=== PATIENT | female | born 1985 | race Caucasian/White ===

== ENCOUNTER 2016-09-26 03:08 | Emergency (ER) | payer OTHER ==
[2016-09-26] MEDS ORDERED: ONDANSETRON ODT 4 MG TAB PO STA (03:25)
[2016-09-26] MEDS ORDERED: MECLIZINE 12.5 MG TAB PO STA (03:41)
--- NOTE | 2016-09-26 03:45 | ED ---
Dizziness HPI - General Chief Complaint: Nausea/Vomiting/Diarrhea Stated Complaint: Nausea, Vomiting, Dizziness Time Seen by Provider: 09/26/16 03:15 Source: family Mode of arrival: ambulatory Limitations: no limitations - History of Present Illness Initial Comments: This patient is a 30-year-old woman who presents with the onset of intense vertigo, coming by nausea and vomiting starting around 2 AM. Patient states that she woke from sleep with this. She immediately went to the bathroom and had some vomiting. She states that felt like she was losing her balance and that everything was spinning. The feeling is better when she remains still, worse when she changes position. She denies any other associated symptoms. MD Complaint: dizziness Onset/Timin -: hour(s) Timing: sudden onset Description: "room spinning", off-balance, difficulty walking History of Same: No History of Trauma: No Severity: severe Improves With: remaining still Worsens With: movement - Related Data Home Medications Medication Instructions Recorded Confirmed Ibuprofen [Motrin] 400 mg PO Q6HR PRN 10/19/15 09/26/16 busPIRone HCl [Buspar] 10 mg PO BID 09/26/16 09/26/16 Previous Rx's Medication Instructions Recorded Cephalexin [Keflex] 500 mg PO Q6HR #40 cap 10/19/15 Meclizine [Antivert] 25 mg PO TID #30 tab 09/26/16 Allergies Allergy/AdvReac Type Severity Reaction Status Date / Time Penicillins Allergy Rash/Hives Verified 10/19/15 09:39 strawberries Allergy Rash/Hives Uncoded 10/19/15 09:39 Review of Systems ROS Statement: Those systems with pertinent positive or pertinent negative responses have been documented in the HPI. ROS Other: All systems not noted in ROS Statement are negative. Constitutional: Denies: fever, chills, weakness Eyes: Denies: vision change ENT: Denies: ear pain, congestion Respiratory: Denies: cough, dyspnea Cardiovascular: Denies: chest pain, palpitations, syncope Gastrointestinal: Reports: nausea, vomiting. Denies: abdominal pain Genitourinary: Denies: dysuria, hematuria, abnormal menses Skin: Denies: rash Neurological: Reports: vertigo. Denies: headache, weakness, numbness, paresthesias, confusion Past Medical History Past Medical History: Hypertension History of Any Multi-Drug Resistant Organisms: None Reported Past Surgical History: Section Past Psychological History: No Psychological Hx Reported Smoking Status: Current every day smoker Past Alcohol Use History: Occasional Past Drug Use History: None Reported General Exam Limitations: no limitations General appearance: alert, in no apparent distress, obese Head exam: Present: atraumatic, normocephalic Eye exam: Present: normal appearance, PERRL, EOMI. Absent: scleral icterus, conjunctival injection, nystagmus ENT exam: Present: normal oropharynx Neck exam: Present: normal inspection, other (No carotid bruit) Respiratory exam: Present: normal lung sounds bilaterally. Absent: respiratory distress, wheezes, rales, rhonchi, stridor Cardiovascular Exam: Present: regular rate, normal rhythm, normal heart sounds. Absent: systolic murmur, diastolic murmur, rubs, gallop GI/Abdominal exam: Present: soft. Absent: distended, tenderness, guarding, rebound, mass Extremities exam: Present: normal inspection, normal capillary refill. Absent: pedal edema, calf tenderness Back exam: Present: normal inspection. Absent: CVA tenderness (R), CVA tenderness (L) Neurological exam: Present: alert Skin exam: Present: warm, dry, intact, normal color. Absent: rash Course Vital Signs 09/26/16 03:16 Temperature 97.9 F Pulse Rate 87 Respiratory 20 Rate Blood Pressure 143/78 O2 Sat by Pulse 98 Oximetry Medical Decision Making - Lab Data Result diagrams: 09/26/16 03:54 09/26/16 03:54 Lab Results 09/26/16 09/26/16 09/26/16 Range/Units 03:40 03:54 03:54 WBC 11.4 H (3.8-10.6) k/uL RBC 4.80 (3.80-5.40) m/uL Hgb 15.0 (11.4-16.0) gm/dL Hct 44.7 (34.0-46.0) % MCV 93.1 (80.0-100.0) fL MCH 31.2 (25.0-35.0) pg MCHC 33.5 (31.0-37.0) g/dL RDW 13.4 (11.5-15.5) % Sodium 142 (137-145) mmol/L Potassium 4.5 (3.5-5.1) mmol/L Chloride 109 H (98-107) mmol/L Carbon Dioxide 21 L (22-30) mmol/L Anion Gap 12 mmol/L BUN 13 (7-17) mg/dL Creatinine 0.60 (0.52-1.04) mg/dL Est GFR (MDRD) Af Amer >60 (>60 ml/min/1.73 sqM) Est GFR (MDRD) Non-Af >60 (>60 ml/min/1.73 sqM) Glucose 120 H (74-99) mg/dL Calcium 8.9 (8.4-10.2) mg/dL Urine HCG, Qual Not Detected (Not Detectd) Disposition Clinical Impression: Vertigo Disposition: HOME SELF-CARE Condition: Good Instructions: Vertigo (ED) Prescriptions: Meclizine [Antivert] 25 mg PO TID #30 tab Referrals: None,Stated [Primary Care Provider] - 1-2 days
[2016-09-26 04:25] LABS: CH 32.1; CHCM 34.6; HCT 44.7 % (34.0-46.0); HDW 2.63; MCH 31.2 pg (25.0-35.0); MCHC 33.5 g/dL (31.0-37.0); MCV 93.1 fL (80.0-100.0); Mean Platelet Volume 9.4; Neutrophils % (A) 71 %; RDW 13.4 % (11.5-15.5); WBC 11.4 k/uL (3.8-10.6); WBC (Perox) 10.82
[2016-09-26 04:26] LABS: Basophils # (A) 0.1 k/uL (0-0.2); Basophils % (A) 0 %; Eosinophils # (A) 0.3 k/uL (0-0.7); Eosinophils % (A) 3 %; Luc % (Auto) 1; Lymphocytes # (A) 2.4 k/uL (1.0-4.8); Lymphocytes % (A) 21 %; Monocytes # (A) 0.5 k/uL (0-1.0); Monocytes % (A) 4 %; Neutrophils # (A) 8.1 k/uL (1.3-7.7)
[2016-09-26 04:31] LABS: Anion Gap 12 mmol/L; Calcium 8.9 mg/dL (8.4-10.2); Carbon Dioxide 21 mmol/L (22-30); Chloride 109 mmol/L (98-107); Glucose 120 mg/dL (74-99); Non-African American GFR(MDRD) >60 (>60 ml/min/1.73 sqM); Sodium 142 mmol/L (137-145)
[2016-09-26 04:41] LABS: Blood Urea Nitrogen 13 mg/dL (7-17); Potassium 4.5 mmol/L (3.5-5.1)
[2016-09-26 04:46] LABS: Manual Review Performed
[2016-09-26 04:47] LABS: RBC Morphology Normal
[2016-09-26 04:56] VITALS: BP 136/81; PULSE 66; RESP 18; TEMP 97.2
== END 2016-09-26 05:02 | disposition home or self-care (01) ==
LOC: EC 03:08
DX: R42 Dizziness and giddiness (principal); R11.2 Nausea with vomiting, unspecified; R26.2 Difficulty in walking, not elsewhere classified; F17.200 Nicotine dependence, unspecified, uncomplicated; Z79.899 Other long term (current) drug therapy; Z88.0 Allergy status to penicillin; Z91.018 Allergy to other foods
CPT/HCPCS: 36415; 80048; 81025; 85025; 99284

== ENCOUNTER 2017-04-10 08:37 | Emergency (ER) | payer OTHER ==
[2017-04-10 08:49] VITALS: BP 163/81; PULSE 83; TEMP 98.1
--- NOTE | 2017-04-10 09:05 | ED ---
General Adult HPI - General Chief complaint: Upper Respiratory Infection Stated complaint: Facial Swelling, ENT Time Seen by Provider: 04/10/17 08:57 Source: patient, RN notes reviewed Mode of arrival: ambulatory Limitations: no limitations - History of Present Illness Initial comments: Patient is a pleasant 31-year-old female presenting to the emergency Department with sinus congestion and drainage. Symptoms have been present for a couple of days and worse today. Patient has noticed some swelling under left eye. No cough or dyspnea. No fevers. Patient states her is also some discomfort of the left ear. - Related Data Previous Rx's Medication Instructions Recorded Azithromycin [Zithromax Z-pack] 250 mg PO DIRECTED #6 tab 04/10/17 Allergies Allergy/AdvReac Type Severity Reaction Status Date / Time Penicillins Allergy Rash/Hives Verified 04/10/17 08:49 strawberry Allergy Rash/Hives Verified 04/10/17 09:00 Review of Systems ROS Statement: Those systems with pertinent positive or pertinent negative responses have been documented in the HPI. ROS Other: All systems not noted in ROS Statement are negative. Constitutional: Denies: fever, chills Eyes: Denies: eye pain ENT: Reports: ear pain, congestion Respiratory: Denies: dyspnea Cardiovascular: Denies: chest pain Endocrine: Denies: fatigue Gastrointestinal: Denies: abdominal pain Genitourinary: Denies: dysuria Musculoskeletal: Denies: back pain Skin: Denies: rash Neurological: Denies: weakness Past Medical History Past Medical History: Hypertension History of Any Multi-Drug Resistant Organisms: None Reported Past Surgical History: Section Past Psychological History: No Psychological Hx Reported Smoking Status: Current every day smoker Past Alcohol Use History: Rare Past Drug Use History: None Reported General Exam Limitations: no limitations General appearance: alert, in no apparent distress Head exam: Present: atraumatic Eye exam: Present: normal appearance, PERRL, other (Mild swelling in the left infraorbital region) ENT exam: Present: normal oropharynx, TM's normal bilaterally, other (Mild tenderness of the maxillary sinuses) Neck exam: Present: normal inspection Respiratory exam: Present: normal lung sounds bilaterally Cardiovascular Exam: Present: regular rate, normal rhythm GI/Abdominal exam: Present: soft. Absent: tenderness Neurological exam: Present: alert Psychiatric exam: Present: normal affect, normal mood Skin exam: Absent: rash Course Vital Signs 04/10/17 08:47 Temperature 98.1 F Pulse Rate 83 Respiratory 16 Rate Blood Pressure 163/81 O2 Sat by Pulse 98 Oximetry Disposition Clinical Impression: Sinusitis Disposition: HOME SELF-CARE Condition: Stable Instructions: Sinusitis (ED) Additional Instructions: Please follow-up with primary care physician in the next few days for recheck. [id number] saline nasal spray/motion nasal spray 4 times daily. Return for increased swelling, redness, visual change, eye pain, worsening symptoms or other concerns. Prescriptions: Azithromycin [Zithromax Z-pack] 250 mg PO DIRECTED #6 tab Referrals: None,Stated [Primary Care Provider] - 1-2 days Time of Disposition: 09:05
[2017-04-10 09:10] VITALS: RESP 19
== END 2017-04-10 09:12 | disposition home or self-care (01) ==
LOC: EC 08:37
DX: J32.0 Chronic maxillary sinusitis (principal); F17.200 Nicotine dependence, unspecified, uncomplicated; Z88.0 Allergy status to penicillin; Z91.018 Allergy to other foods
CPT/HCPCS: 99283

== ENCOUNTER 2017-06-22 00:50 | Emergency (ER) | payer OTHER ==
[2017-06-22 01:20] LABS: Glucose,Whole Blood 132 mg/dL (75-99)
[2017-06-22] MEDS ORDERED: SODIUM CHLORIDE 0.9% 1,000 ML IV STA (01:49)
[2017-06-22] MEDS ORDERED: THIAMINE 100 MG/ML 2 ML VIAL IVPB STA (01:49)
[2017-06-22] MEDS ORDERED: SODIUM CHLORIDE 0.9% 500 ML IV STA (01:49)
[2017-06-22 03:32] LABS: Basophils # (A) 0.1 k/uL (0-0.2); Basophils % (A) 0 %; Eosinophils # (A) 0.1 k/uL (0-0.7); Eosinophils % (A) 1 %; HCT 46.9 % (34.0-46.0); HGB 16.2 gm/dL (11.4-16.0); Lymphocytes # (A) 2.1 k/uL (1.0-4.8); Lymphocytes % (A) 14 %; MCH 30.9 pg (25.0-35.0); MCHC 34.6 g/dL (31.0-37.0); MCV 89.4 fL (80.0-100.0); Mean Platelet Volume 9.5; Monocytes # (A) 0.4 k/uL (0-1.0); Monocytes % (A) 2 %; Neutrophils # (A) 11.7 k/uL (1.3-7.7); Neutrophils % (A) 81 %; RBC 5.25 m/uL (3.80-5.40); RDW 13.1 % (11.5-15.5); WBC 14.4 k/uL (3.8-10.6)
--- NOTE | 2017-06-22 03:41 | ED ---
General Adult HPI - General Chief complaint: Alcohol Stated complaint: Syncope Time Seen by Provider: 06/22/17 01:29 Source: patient, RN notes reviewed, old records reviewed Mode of arrival: EMS Limitations: no limitations, altered mental status - History of Present Illness Initial comments: This is a 31-year-old female to the ER for evaluation. Patient unable to give accurate history. Secondary to clinical state intoxication. Patient was found per EMS on floor of the bathroom. Patient was difficult to arouse. Patient is known to have substance abuse and drank a significant amount of alcohol tonight - Related Data Home Medications Medication Instructions Recorded Confirmed No Known Home Medications [No 06/22/17 06/22/17 Known Home Medications] Allergies Allergy/AdvReac Type Severity Reaction Status Date / Time Penicillins Allergy Rash/Hives Verified 06/22/17 01:17 strawberry Allergy Rash/Hives Verified 06/22/17 01:17 Review of Systems ROS Statement: Those systems with pertinent positive or pertinent negative responses have been documented in the HPI. ROS Other: All systems not noted in ROS Statement are negative. Past Medical History Past Medical History: Hypertension History of Any Multi-Drug Resistant Organisms: None Reported Past Surgical History: Section Additional Past Surgical History / Comment(s): c-sect x1 Past Psychological History: No Psychological Hx Reported Smoking Status: Current every day smoker Past Alcohol Use History: Rare Past Drug Use History: None Reported General Exam Limitations: no limitations, altered mental status General appearance: alert, in no apparent distress, appears intoxicated Head exam: Present: atraumatic, normocephalic, normal inspection Eye exam: Present: normal appearance, PERRL, EOMI. Absent: scleral icterus, conjunctival injection, periorbital swelling ENT exam: Present: normal exam, mucous membranes moist Neck exam: Present: normal inspection. Absent: tenderness, meningismus, lymphadenopathy Respiratory exam: Present: normal lung sounds bilaterally. Absent: respiratory distress, wheezes, rales, rhonchi, stridor Cardiovascular Exam: Present: regular rate, normal rhythm, normal heart sounds. Absent: systolic murmur, diastolic murmur, rubs, gallop, clicks GI/Abdominal exam: Present: soft, normal bowel sounds. Absent: distended, tenderness, guarding, rebound, rigid Extremities exam: Present: normal inspection, full ROM, normal capillary refill. Absent: tenderness, pedal edema, joint swelling, calf tenderness Back exam: Present: normal inspection Neurological exam: Present: alert, oriented X3, CN II-XII intact Psychiatric exam: Present: normal affect, normal mood Skin exam: Present: warm, dry, intact, normal color. Absent: rash Course Vital Signs 06/22/17 06/22/17 06/22/17 01:11 03:53 05:10 Temperature 97.1 F L Pulse Rate 84 77 78 Respiratory 18 Rate Blood Pressure 137/91 122/73 125/72 O2 Sat by Pulse 98 97 98 Oximetry - Reevaluation(s) Reevaluation #1: 06/22/17 06:15 Patient much improved, awake and alert, arousable. EKG Findings - EKG Comments: EKG Findings:: EKG shows normal sinus rhythm rate of 87, OR 170, QRS 72, QTc 486 Medical Decision Making - Medical Decision Making 29 female the ER for evaluation. Patient found passed out in bathroom, patient at this time is awake alert arousable. Patient given adequate hydration, nausea vomiting is improved. Patient can be discharged home - Lab Data Result diagrams: 06/22/17 03:17 06/22/17 03:17 Lab Results 06/22/17 06/22/17 06/22/17 Range/Units 01:14 03:17 03:17 WBC (3.8-10.6) k/uL RBC (3.80-5.40) m/uL Hgb (11.4-16.0) gm/dL Hct (34.0-46.0) % MCV (80.0-100.0) fL MCH (25.0-35.0) pg MCHC (31.0-37.0) g/dL RDW (11.5-15.5) % Plt Count (150-450) k/uL Neutrophils % % Lymphocytes % % Monocytes % % Eosinophils % % Basophils % % Neutrophils # (1.3-7.7) k/uL Lymphocytes # (1.0-4.8) k/uL Monocytes # (0-1.0) k/uL Eosinophils # (0-0.7) k/uL Basophils # (0-0.2) k/uL PT (9.0-12.0) sec INR (<1.2) Sodium 146 H (137-145) mmol/L Potassium 3.9 (3.5-5.1) mmol/L Chloride 112 H (98-107) mmol/L Carbon Dioxide 21 L (22-30) mmol/L Anion Gap 13 mmol/L BUN 8 (7-17) mg/dL Creatinine 0.70 (0.52-1.04) mg/dL Est GFR (CKD-EPI)AfAm >90 (>60 ml/min/1.73 sqM) Est GFR (CKD-EPI)NonAf >90 (>60 ml/min/1.73 sqM) Glucose 110 H (74-99) mg/dL POC Glucose (mg/dL) 132 H (75-99) mg/dL POC Glu Stand Grinder ID Delicia Cruz Calcium 8.7 (8.4-10.2) mg/dL Phosphorus 3.4 (2.5-4.5) mg/dL Magnesium 2.1 (1.6-2.3) mg/dL Total Bilirubin 0.2 (0.2-1.3) mg/dL AST 21 (14-36) U/L ALT 24 (9-52) U/L Alkaline Phosphatase 56 (38-126) U/L Total Creatine Kinase 161 H (30-135) U/L CK-MB (CK-2) 0.9 (0.0-2.4) ng/mL CK-MB (CK-2) Rel Index 0.6 Troponin I <0.012 (0.000-0.034) ng/mL Total Protein 6.5 (6.3-8.2) g/dL Albumin 4.0 (3.5-5.0) g/dL Lipase 52 (23-300) U/L Urine Color Urine Appearance (Clear) Urine pH (5.0-8.0) Ur Specific [place] (1.001-1.035) Urine Protein (Negative) Urine Glucose (UA) (Negative) Urine Ketones (Negative) Urine Blood (Negative) Urine Nitrite (Negative) Urine Bilirubin (Negative) Urine Urobilinogen (<2.0) mg/dL Ur Leukocyte Esterase (Negative) Urine RBC (0-5) /hpf Urine WBC (0-5) /hpf Ur Squamous Epith Cells (0-4) /hpf Amorphous Sediment (None) /hpf Urine Bacteria (None) /hpf Urine Mucus (None) /hpf Urine HCG, Qual (Not Detectd) Salicylates <1.0 mg/dL Urine Opiates Screen (NotDetected) Ur Oxycodone Screen (NotDetected) Urine Methadone Screen (NotDetected) Ur Propoxyphene Screen (NotDetected) Acetaminophen <10.0 ug/mL Ur Barbiturates Screen (NotDetected) U Tricyclic Antidepress (NotDetected) Ur Phencyclidine Scrn (NotDetected) Ur Amphetamines Screen (NotDetected) U Methamphetamines Scrn (NotDetected) U Benzodiazepines Scrn (NotDetected) Urine Cocaine Screen (NotDetected) U Marijuana (THC) Screen (NotDetected) Serum Alcohol 175 mg/dL 06/22/17 06/22/17 06/22/17 Range/Units 03:17 03:17 03:39 WBC 14.4 H (3.8-10.6) k/uL RBC 5.25 (3.80-5.40) m/uL Hgb 16.2 H (11.4-16.0) gm/dL Hct 46.9 H (34.0-46.0) % MCV 89.4 (80.0-100.0) fL MCH 30.9 (25.0-35.0) pg MCHC 34.6 (31.0-37.0) g/dL RDW 13.1 (11.5-15.5) % Plt Count 94 L (150-450) k/uL Neutrophils % 81 % Lymphocytes % 14 % Monocytes % 2 % Eosinophils % 1 % Basophils % 0 % Neutrophils # 11.7 H (1.3-7.7) k/uL Lymphocytes # 2.1 (1.0-4.8) k/uL Monocytes # 0.4 (0-1.0) k/uL Eosinophils # 0.1 (0-0.7) k/uL Basophils # 0.1 (0-0.2) k/uL PT 9.6 (9.0-12.0) sec INR 1.0 (<1.2) Sodium (137-145) mmol/L Potassium (3.5-5.1) mmol/L Chloride (98-107) mmol/L Carbon Dioxide (22-30) mmol/L Anion Gap mmol/L BUN (7-17) mg/dL Creatinine (0.52-1.04) mg/dL Est GFR (CKD-EPI)AfAm (>60 ml/min/1.73 sqM) Est GFR (CKD-EPI)NonAf (>60 ml/min/1.73 sqM) Glucose (74-99) mg/dL POC Glucose (mg/dL) (75-99) mg/dL POC Glu Stand Grinder ID Calcium (8.4-10.2) mg/dL Phosphorus (2.5-4.5) mg/dL Magnesium (1.6-2.3) mg/dL Total Bilirubin (0.2-1.3) mg/dL AST (14-36) U/L ALT (9-52) U/L Alkaline Phosphatase (38-126) U/L Total Creatine Kinase (30-135) U/L CK-MB (CK-2) (0.0-2.4) ng/mL CK-MB (CK-2) Rel Index Troponin I (0.000-0.034) ng/mL Total Protein (6.3-8.2) g/dL Albumin (3.5-5.0) g/dL Lipase (23-300) U/L Urine Color Yellow Urine Appearance Turbid H (Clear) Urine pH 6.0 (5.0-8.0) Ur Specific [place] 1.007 (1.001-1.035) Urine Protein Negative (Negative) Urine Glucose (UA) Negative (Negative) Urine Ketones Negative (Negative) Urine Blood Negative (Negative) Urine Nitrite Negative (Negative) Urine Bilirubin Negative (Negative) Urine Urobilinogen <2.0 (<2.0) mg/dL Ur Leukocyte Esterase Moderate H (Negative) Urine RBC 7 H (0-5) /hpf Urine WBC 25 H (0-5) /hpf Ur Squamous Epith Cells 27 H (0-4) /hpf Amorphous Sediment Rare H (None) /hpf Urine Bacteria Many H (None) /hpf Urine Mucus Rare H (None) /hpf Urine HCG, Qual (Not Detectd) Salicylates mg/dL Urine Opiates Screen Not Detected (NotDetected) Ur Oxycodone Screen Not Detected (NotDetected) Urine Methadone Screen Not Detected (NotDetected) Ur Propoxyphene Screen Not Detected (NotDetected) Acetaminophen ug/mL Ur Barbiturates Screen Not Detected (NotDetected) U Tricyclic Antidepress Not Detected (NotDetected) Ur Phencyclidine Scrn Not Detected (NotDetected) Ur Amphetamines Screen Not Detected (NotDetected) U Methamphetamines Scrn Not Detected (NotDetected) U Benzodiazepines Scrn Not Detected (NotDetected) Urine Cocaine Screen Detected H (NotDetected) U Marijuana (THC) Screen Detected H (NotDetected) Serum Alcohol mg/dL 06/22/17 Range/Units 03:39 WBC (3.8-10.6) k/uL RBC (3.80-5.40) m/uL Hgb (11.4-16.0) gm/dL Hct (34.0-46.0) % MCV (80.0-100.0) fL MCH (25.0-35.0) pg MCHC (31.0-37.0) g/dL RDW (11.5-15.5) % Plt Count (150-450) k/uL Neutrophils % % Lymphocytes % % Monocytes % % Eosinophils % % Basophils % % Neutrophils # (1.3-7.7) k/uL Lymphocytes # (1.0-4.8) k/uL Monocytes # (0-1.0) k/uL Eosinophils # (0-0.7) k/uL Basophils # (0-0.2) k/uL PT (9.0-12.0) sec INR (<1.2) Sodium (137-145) mmol/L Potassium (3.5-5.1) mmol/L Chloride (98-107) mmol/L Carbon Dioxide (22-30) mmol/L Anion Gap mmol/L BUN (7-17) mg/dL Creatinine (0.52-1.04) mg/dL Est GFR (CKD-EPI)AfAm (>60 ml/min/1.73 sqM) Est GFR (CKD-EPI)NonAf (>60 ml/min/1.73 sqM) Glucose (74-99) mg/dL POC Glucose (mg/dL) (75-99) mg/dL POC Glu Stand Grinder ID Calcium (8.4-10.2) mg/dL Phosphorus (2.5-4.5) mg/dL Magnesium (1.6-2.3) mg/dL Total Bilirubin (0.2-1.3) mg/dL AST (14-36) U/L ALT (9-52) U/L Alkaline Phosphatase (38-126) U/L Total Creatine Kinase (30-135) U/L CK-MB (CK-2) (0.0-2.4) ng/mL CK-MB (CK-2) Rel Index Troponin I (0.000-0.034) ng/mL Total Protein (6.3-8.2) g/dL Albumin (3.5-5.0) g/dL Lipase (23-300) U/L Urine Color Urine Appearance (Clear) Urine pH (5.0-8.0) Ur Specific [place] (1.001-1.035) Urine Protein (Negative) Urine Glucose (UA) (Negative) Urine Ketones (Negative) Urine Blood (Negative) Urine Nitrite (Negative) Urine Bilirubin (Negative) Urine Urobilinogen (<2.0) mg/dL Ur Leukocyte Esterase (Negative) Urine RBC (0-5) /hpf Urine WBC (0-5) /hpf Ur Squamous Epith Cells (0-4) /hpf Amorphous Sediment (None) /hpf Urine Bacteria (None) /hpf Urine Mucus (None) /hpf Urine HCG, Qual Not Detected (Not Detectd) Salicylates mg/dL Urine Opiates Screen (NotDetected) Ur Oxycodone Screen (NotDetected) Urine Methadone Screen (NotDetected) Ur Propoxyphene Screen (NotDetected) Acetaminophen ug/mL Ur Barbiturates Screen (NotDetected) U Tricyclic Antidepress (NotDetected) Ur Phencyclidine Scrn (NotDetected) Ur Amphetamines Screen (NotDetected) U Methamphetamines Scrn (NotDetected) U Benzodiazepines Scrn (NotDetected) Urine Cocaine Screen (NotDetected) U Marijuana (THC) Screen (NotDetected) Serum Alcohol mg/dL Disposition Clinical Impression: Alcoholic intoxication, Altered mental state, Polysubstance abuse Disposition: HOME SELF-CARE Condition: Good Instructions: Alcohol Intoxication (ED), Polysubstance Abuse (ED) Referrals: None,Stated [Primary Care Provider] - 1-2 days
[2017-06-22 03:51] LABS: Platelet Count 94 k/uL (150-450)
[2017-06-22 04:03] LABS: Creatine Kinase 161 U/L (30-135)
[2017-06-22 04:04] LABS: ALT 24 U/L (9-52); AST 21 U/L (14-36); Acetaminophen <10.0 ug/mL; Alkaline Phosphatase 56 U/L (38-126); Anion Gap 13 mmol/L; Blood Urea Nitrogen 8 mg/dL (7-17); Calcium 8.7 mg/dL (8.4-10.2); Carbon Dioxide 21 mmol/L (22-30); Chloride 112 mmol/L (98-107); Glucose 110 mg/dL (74-99); Lipase 52 U/L (23-300); Magnesium 2.1 mg/dL (1.6-2.3); Phosphorus 3.4 mg/dL (2.5-4.5); Potassium 3.9 mmol/L (3.5-5.1); Prothrombin Time 9.6 sec (9.0-12.0); Salicylate <1.0 mg/dL; Sodium 146 mmol/L (137-145); Total Bilirubin 0.2 mg/dL (0.2-1.3); Total Protein 6.5 g/dL (6.3-8.2)
[2017-06-22 04:15] LABS: Creatine Kinase MB 0.9 ng/mL (0.0-2.4); Troponin I <0.012 ng/mL (0.000-0.034)
[2017-06-22 04:32] LABS: Amphetamine Screen,Urine Not Detected (NotDetected); Barbiturate Screen,Urine Not Detected (NotDetected); Benzodiazepines Screen,Urine Not Detected (NotDetected); Cocaine Screen,Urine Detected (NotDetected); Methadone Screen, Urine Not Detected (NotDetected); Opiate Screen,Urine Not Detected (NotDetected); Oxycodone Screen, Urine Not Detected (NotDetected); Phencyclidine Screen,Urine Not Detected (NotDetected); Tricyclic Antidepressant,Urine Not Detected (NotDetected); Urn Cannabinoid Scrn Detected (NotDetected)
[2017-06-22 04:32] LABS: Alcohol 175 mg/dL
[2017-06-22 04:48] LABS: Amorphous Sediment,Urine Rare /hpf; Appearance,Urine Turbid (Clear); Bacteria,Urine Many /hpf; Bilirubin,Urine Negative (Negative); Blood,Urine Negative (Negative); Color,Urine Yellow; Glucose,Urine (UA) Negative (Negative); Ketones,Urine Negative (Negative); Leukocyte Esterase,Urine Moderate (Negative); Mucus,Urine Rare /hpf; Nitrite,Urine Negative (Negative); Protein,Urine Negative (Negative); RBC,Urine 7 /hpf (0-5); Specific Gravity,Urine 1.007 (1.001-1.035); Squamous Epithelial Cell,Urine 27 /hpf (0-4); Urobilinogen,Urine <2.0 mg/dL (<2.0); WBC,Urine 25 /hpf (0-5)
[2017-06-22 06:50] VITALS: TEMP 98.2
[2017-06-22 08:39] VITALS: BP 135/86; PULSE 82; RESP 16
== END 2017-06-22 09:05 | disposition home or self-care (01) ==
LOC: EC 00:50
DX: F10.120 Alcohol abuse with intoxication, uncomplicated (principal); F19.10 Other psychoactive substance abuse, uncomplicated; R41.82 Altered mental status, unspecified; Y90.6 Blood alcohol level of 120-199 mg/100 ml; F17.200 Nicotine dependence, unspecified, uncomplicated; Z88.0 Allergy status to penicillin; Z91.018 Allergy to other foods
CPT/HCPCS: 99285; 96360; 96361; 36415; 93005; 80053; 82550; 82553; 83690; 83735; 84100; 84484; 85025; 85610; 81001; 81025; 80306; 83520 ×2; 80320; J3411

== ENCOUNTER 2017-09-07 11:40 | Emergency (ER) | payer OTHER ==
[2017-09-07 11:48] VITALS: BP 142/84; PULSE 80; RESP 18; TEMP 97.5
[2017-09-07] MEDS ORDERED: ACET/COD 300 MG/30 MG STARTER PACK 6 TAB BTL PO STA (12:06)
--- NOTE | 2017-09-07 12:11 | ED ---
General Adult HPI - General Chief complaint: Dental/Oral Stated complaint: Toothache Time Seen by Provider: 09/07/17 12:01 Source: patient, RN notes reviewed Mode of arrival: ambulatory Limitations: no limitations - History of Present Illness Initial comments: Patient 31-year-old female presents emergency room today with a chief complaint of increased dental pain. Patient does admit that her last today she's had increased pain to the right upper jaw. Patient states that she's had similar symptoms in the past with a bad tooth. She does admit that she's had a metal taste. Patient does admit she's tried ibuprofen [id number]. She denies any other complaints symptoms. Patient denies any recent fever, chills, shortness of breath, chest pain, back pain, abdominal pain, nausea or vomiting, numbness or tingling, headaches or visual changes, or any other complaints. - Related Data Previous Rx's Medication Instructions Recorded Clindamycin HCl [Cleocin] 300 mg PO Q6HR #40 cap 09/07/17 Allergies Allergy/AdvReac Type Severity Reaction Status Date / Time Penicillins Allergy Rash/Hives Verified 09/07/17 11:48 strawberry Allergy Rash/Hives Verified 09/07/17 11:48 Review of Systems ROS Statement: Those systems with pertinent positive or pertinent negative responses have been documented in the HPI. ROS Other: All systems not noted in ROS Statement are negative. Past Medical History Past Medical History: Hypertension History of Any Multi-Drug Resistant Organisms: None Reported Past Surgical History: Section Additional Past Surgical History / Comment(s): c-sect x1 Past Psychological History: No Psychological Hx Reported Smoking Status: Current every day smoker Past Alcohol Use History: Rare Past Drug Use History: None Reported General Exam - General Exam Comments Initial Comments: General: The patient is awake and alert, in no distress, and does not appear acutely ill. Eye: Pupils are equal, round and reactive to light, extra-ocular movements are intact. No nystagmus. There is normal conjunctiva bilaterally. No signs of icterus. Ears, nose, mouth and throat: There are moist mucous membranes and no oral lesions. Patient does have tenderness over tooth #2. No obvious abscess. Uvula midline. Patient swallows without any difficulty. Neck: The neck is supple, there is no tenderness or JVD. Musculoskeletal: Normal ROM, no tenderness. Strength 5/5. Sensation intact. Neurological: A&O x 3. CN II-XII intact, There are no obvious motor or sensory deficits. Coordination appears grossly intact. Speech is normal. Skin: Skin is warm and dry and no rashes or lesions are noted. Psychiatric: Cooperative, appropriate mood & affect, normal judgment. Limitations: no limitations Course Vital Signs 09/07/17 11:46 Temperature 97.5 F L Pulse Rate 80 Respiratory 18 Rate Blood Pressure 142/84 O2 Sat by Pulse 98 Oximetry Medical Decision Making - Medical Decision Making Patient be started on antibiotic of clinic myosin due to penicillin ALLERGY. Patient given starter pack a Tylenol with codeine. Advised continued anti- inflammatories. Advised follow dentist over the next 2-5 days. Advised return if symptoms increase or worsen. Disposition Clinical Impression: Dental abscess Disposition: HOME SELF-CARE Condition: Good Instructions: Dental Abscess (ED) Additional Instructions: Please use to back of the inside of the gum line to help with drainage. Please use pain medication and antibiotics as prescribed. Please follow-up dentist over the next 2-5 days. Please return to emergency room for any other concerns. Prescriptions: Clindamycin HCl [Cleocin] 300 mg PO Q6HR #40 cap Is patient prescribed a controlled substance at d/c from ED?: No Referrals: None,Stated [Primary Care Provider] - 1-2 days Time of Disposition: 12:09
== END 2017-09-07 12:34 | disposition home or self-care (01) ==
LOC: EC 11:40
DX: K04.7 Periapical abscess without sinus (principal); F17.200 Nicotine dependence, unspecified, uncomplicated; Z88.0 Allergy status to penicillin; Z91.018 Allergy to other foods
CPT/HCPCS: 99282

== ENCOUNTER 2018-12-04 00:53 | Emergency (ER) | payer OTHER ==
[2018-12-04 01:01] VITALS: TEMP 97.9
[2018-12-04] MEDS ORDERED: SODIUM CHLORIDE 0.9% 1,000 ML IV STA (01:12)
--- NOTE | 2018-12-04 01:31 | ED ---
Female Urogenital HPI - General Chief complaint: Urogenital Stated complaint: Female , back pain Time Seen by Provider: 12/04/18 01:12 Source: patient, RN notes reviewed Mode of arrival: ambulatory Limitations: no limitations - History of Present Illness Initial comments: This a 33-year-old female presents emergency Department chief complaint of heavy vaginal bleeding, discomfort and dysuria. Patient states that symptoms started last day or so. She did state that she ended her normal mental cycle 10 days ago states that she started spotting from the this as excessive bleeding from her usual heavy bleeding during her mental cycle. Patient states she is 4 months she did have her normal mental cycle last month. Patient's RESIDENTIAL ROOFER is Dr. Kline. Patient did have tubal ligation during her section. She has mild discomfort on her right flank but states is intermittent. She describes her dysuria as burning and stinging. She also states that she feels swollen. Patient reports no fevers or chills denies a diarrhea consti pation.. Last Menstrual Period: 11/23/18 - Related Data Previous Rx's Medication Instructions Recorded Clindamycin HCl [Cleocin] 300 mg PO Q6HR #40 cap 09/07/17 Sulfamethox-Tmp 800-160Mg [Bactrim 1 each PO Q12HR #14 tab 12/04/18 Ds] valACYclovir HCL [Valtrex] 1,000 mg PO Q12HR #20 tab 12/04/18 Allergies Allergy/AdvReac Type Severity Reaction Status Date / Time Penicillins Allergy Rash/Hives Verified 09/07/17 11:48 strawberry Allergy Rash/Hives Verified 09/07/17 11:48 Review of Systems ROS Statement: Those systems with pertinent positive or pertinent negative responses have been documented in the HPI. ROS Other: All systems not noted in ROS Statement are negative. Past Medical History Past Medical History: Hypertension History of Any Multi-Drug Resistant Organisms: None Reported Past Surgical History: Section Additional Past Surgical History / Comment(s): c-sect x1 Past Psychological History: No Psychological Hx Reported Smoking Status: Current every day smoker Past Alcohol Use History: Rare Past Drug Use History: None Reported General Exam Limitations: no limitations General appearance: alert, in no apparent distress Head exam: Present: atraumatic, normocephalic, normal inspection Eye exam: Present: normal appearance, PERRL, EOMI. Absent: scleral icterus, conjunctival injection, periorbital swelling ENT exam: Present: normal exam, normal oropharynx, mucous membranes moist Neck exam: Present: normal inspection, full ROM. Absent: tenderness, meningismus, lymphadenopathy Respiratory exam: Present: normal lung sounds bilaterally. Absent: respiratory distress, wheezes, rales, rhonchi, stridor Cardiovascular Exam: Present: regular rate, normal rhythm, normal heart sounds. Absent: systolic murmur, diastolic murmur, rubs, gallop, clicks GI/Abdominal exam: Present: soft, normal bowel sounds. Absent: distended, tenderness, guarding, rebound, rigid External exam: Present: erythema, lesions (Erythematous ulcerated lesions noted), other (exam with Rn gabino, unable to perform full exam secondary to patient's discomfort) Back exam: Absent: CVA tenderness (R), CVA tenderness (L) Neurological exam: Present: alert Skin exam: Present: warm, dry, intact, normal color. Absent: rash Course Vital Signs 12/04/18 00:57 Temperature 97.9 F Pulse Rate 95 Respiratory 16 Rate Blood Pressure 160/99 O2 Sat by Pulse 99 Oximetry Medical Decision Making - Medical Decision Making 33-year-old female presented for dysuria, heavy vaginal bleeding. Patient does have thrombocytopenia which is chronic and patient is normal at the scheduled see hematology. Patient's hemoglobin is stable. Patient has ulcerated lesions which is concerning for herpes. Patient will be treated appropriately. Patient will follow-up with her RESIDENTIAL ROOFER tomorrow and return for any worsening symptoms. - Lab Data Result diagrams: 12/04/18 01:30 12/04/18 01:30 Lab Results 12/04/18 12/04/18 12/04/18 Range/Units 01:12 01:12 01:30 WBC 8.8 (3.8-10.6) k/uL RBC 4.93 (3.80-5.40) m/uL Hgb 13.4 (11.4-16.0) gm/dL Hct 41.0 (34.0-46.0) % MCV 83.3 (80.0-100.0) fL MCH 27.2 (25.0-35.0) pg MCHC 32.7 (31.0-37.0) g/dL RDW 16.7 H (11.5-15.5) % Plt Count 50 L (150-450) k/uL Neutrophils % 66 % Lymphocytes % 23 % Monocytes % 4 % Eosinophils % 4 % Basophils % 1 % Neutrophils # 5.9 (1.3-7.7) k/uL Lymphocytes # 2.0 (1.0-4.8) k/uL Monocytes # 0.4 (0-1.0) k/uL Eosinophils # 0.3 (0-0.7) k/uL Basophils # 0.1 (0-0.2) k/uL Manual Slide Review Performed Large Platelets Present Anisocytosis Slight Sodium (137-145) mmol/L Potassium (3.5-5.1) mmol/L Chloride (98-107) mmol/L Carbon Dioxide (22-30) mmol/L Anion Gap mmol/L BUN (7-17) mg/dL Creatinine (0.52-1.04) mg/dL Est GFR (CKD-EPI)AfAm (>60 ml/min/1.73 sqM) Est GFR (CKD-EPI)NonAf (>60 ml/min/1.73 sqM) Glucose (74-99) mg/dL Calcium (8.4-10.2) mg/dL Total Bilirubin (0.2-1.3) mg/dL AST (14-36) U/L ALT (9-52) U/L Alkaline Phosphatase (38-126) U/L Total Protein (6.3-8.2) g/dL Albumin (3.5-5.0) g/dL Lipase (23-300) U/L Urine Color Yellow Urine Appearance Clear (Clear) Urine pH 6.0 (5.0-8.0) Ur Specific [place] 1.030 (1.001-1.035) Urine Protein 1+ H (Negative) Urine Glucose (UA) Negative (Negative) Urine Ketones Negative (Negative) Urine Blood Moderate H (Negative) Urine Nitrite Negative (Negative) Urine Bilirubin Negative (Negative) Urine Urobilinogen 2.0 (<2.0) mg/dL Ur Leukocyte Esterase Moderate H (Negative) Urine RBC >182 H (0-5) /hpf Urine WBC 60 H (0-5) /hpf Ur Squamous Epith Cells 8 H (0-4) /hpf Urine Bacteria Occasional H (None) /hpf Urine Mucus Rare H (None) /hpf Urine HCG, Qual Not Detected (Not Detectd) 12/04/18 Range/Units 01:30 WBC (3.8-10.6) k/uL RBC (3.80-5.40) m/uL Hgb (11.4-16.0) gm/dL Hct (34.0-46.0) % MCV (80.0-100.0) fL MCH (25.0-35.0) pg MCHC (31.0-37.0) g/dL RDW (11.5-15.5) % Plt Count (150-450) k/uL Neutrophils % % Lymphocytes % % Monocytes % % Eosinophils % % Basophils % % Neutrophils # (1.3-7.7) k/uL Lymphocytes # (1.0-4.8) k/uL Monocytes # (0-1.0) k/uL Eosinophils # (0-0.7) k/uL Basophils # (0-0.2) k/uL Manual Slide Review Large Platelets Anisocytosis Sodium 139 (137-145) mmol/L Potassium 4.1 (3.5-5.1) mmol/L Chloride 107 (98-107) mmol/L Carbon Dioxide 22 (22-30) mmol/L Anion Gap 10 mmol/L BUN 14 (7-17) mg/dL Creatinine 0.63 (0.52-1.04) mg/dL Est GFR (CKD-EPI)AfAm >90 (>60 ml/min/1.73 sqM) Est GFR (CKD-EPI)NonAf >90 (>60 ml/min/1.73 sqM) Glucose 92 (74-99) mg/dL Calcium 9.0 (8.4-10.2) mg/dL Total Bilirubin 0.2 (0.2-1.3) mg/dL AST 20 (14-36) U/L ALT 22 (9-52) U/L Alkaline Phosphatase 78 (38-126) U/L Total Protein 7.3 (6.3-8.2) g/dL Albumin 4.1 (3.5-5.0) g/dL Lipase 80 (23-300) U/L Urine Color Urine Appearance (Clear) Urine pH (5.0-8.0) Ur Specific [place] (1.001-1.035) Urine Protein (Negative) Urine Glucose (UA) (Negative) Urine Ketones (Negative) Urine Blood (Negative) Urine Nitrite (Negative) Urine Bilirubin (Negative) Urine Urobilinogen (<2.0) mg/dL Ur Leukocyte Esterase (Negative) Urine RBC (0-5) /hpf Urine WBC (0-5) /hpf Ur Squamous Epith Cells (0-4) /hpf Urine Bacteria (None) /hpf Urine Mucus (None) /hpf Urine HCG, Qual (Not Detectd) Disposition Clinical Impression: UTI (urinary tract infection), Vaginal pain, Vaginal sore Disposition: HOME SELF-CARE Condition: Stable Instructions (If sedation given, give patient instructions): Urinary Tract Infection in Women (ED) Additional Instructions: Please return to the Emergency Department if symptoms worsen or any other concerns. Prescriptions: Sulfamethox-Tmp 800-160Mg [Bactrim Ds] 1 each PO Q12HR #14 tab valACYclovir HCL [Valtrex] 1,000 mg PO Q12HR #20 tab Is patient prescribed a controlled substance at d/c from ED?: No Referrals: None,Stated [Primary Care Provider] - 1-2 days Charlene Kline MD [REFERRING] - 1-2 days Time of Disposition: 02:59
[2018-12-04 01:44] LABS: Anisocytosis Slight; Basophils # (A) 0.1 k/uL (0-0.2); Basophils % (A) 1 %; Eosinophils # (A) 0.3 k/uL (0-0.7); Eosinophils % (A) 4 %; HGB 13.4 gm/dL (11.4-16.0); Lymphocytes % (A) 23 %; MCH 27.2 pg (25.0-35.0); MCHC 32.7 g/dL (31.0-37.0); MCV 83.3 fL (80.0-100.0); Mean Platelet Volume 11.4; Monocytes # (A) 0.4 k/uL (0-1.0); Monocytes % (A) 4 %; Neutrophils # (A) 5.9 k/uL (1.3-7.7); Neutrophils % (A) 66 %; RBC 4.93 m/uL (3.80-5.40); RDW 16.7 % (11.5-15.5); WBC 8.8 k/uL (3.8-10.6)
[2018-12-04 01:54] LABS: Appearance,Urine Clear (Clear); Bacteria,Urine Occasional /hpf; Bilirubin,Urine Negative (Negative); Blood,Urine Moderate (Negative); Color,Urine Yellow; Glucose,Urine (UA) Negative (Negative); Ketones,Urine Negative (Negative); Leukocyte Esterase,Urine Moderate (Negative); Mucus,Urine Rare /hpf; Nitrite,Urine Negative (Negative); Protein,Urine 1+ (Negative); RBC,Urine >182 /hpf (0-5); Squamous Epithelial Cell,Urine 8 /hpf (0-4); WBC,Urine 60 /hpf (0-5)
[2018-12-04 01:57] LABS: ALT 22 U/L (9-52); AST 20 U/L (14-36); African American GFR (CKD) >90 (>60 ml/min/1.73 sqM); Albumin 4.1 g/dL (3.5-5.0); Alkaline Phosphatase 78 U/L (38-126); Anion Gap 10 mmol/L; Blood Urea Nitrogen 14 mg/dL (7-17); Carbon Dioxide 22 mmol/L (22-30); Chloride 107 mmol/L (98-107); Glucose 92 mg/dL (74-99); Non-African American GFR(CKD) >90 (>60 ml/min/1.73 sqM); Potassium 4.1 mmol/L (3.5-5.1); Sodium 139 mmol/L (137-145); Total Bilirubin 0.2 mg/dL (0.2-1.3); Total Protein 7.3 g/dL (6.3-8.2)
--- NOTE | 2018-12-04 02:24 | US ---
EXAM: US Pelvis, Transvaginal CLINICAL HISTORY: ITS.REASON US Reason: Pain TECHNIQUE: Real-time transvaginal pelvic ultrasound (complete) with image documentation. Transvaginal imaging was used for better evaluation of the endometrium and adnexa. COMPARISON: No relevant prior studies available. FINDINGS: Uterus/cervix: 10 cm. Normal endometrial stripe thickness 3 mm. No myometrial mass. Cysts in the cervix likely nabothian cysts. Right ovary: Not visualized. No adnexal mass. Left ovary: Not visualized. No adnexal mass. Free fluid: Trace free fluid in the cul-de-sac. IMPRESSION: No definite acute findings are seen. However the ovaries were not visualized due to difficult examination due to patient's pain.
[2018-12-04 02:25] LABS: Large Platelets Present; Platelet Count 50 k/uL (150-450)
[2018-12-04] MEDS ORDERED: valACYclovir 500 MG TAB PO STA (02:57)
[2018-12-04] MEDS ORDERED: cefTRIAXone IN SWFI 1,000 MG/10 ML SYRINGE IVP ONE (03:00)
[2018-12-04 03:26] VITALS: BP 148/88; PULSE 88; RESP 18
== END 2018-12-04 03:28 | disposition home or self-care (01) ==
LOC: EC 00:53
DX: N39.0 Urinary tract infection, site not specified (principal); D69.6 Thrombocytopenia, unspecified; N76.6 Ulceration of vulva; N93.9 Abnormal uterine and vaginal bleeding, unspecified; F17.200 Nicotine dependence, unspecified, uncomplicated; Z88.0 Allergy status to penicillin; Z91.018 Allergy to other foods; Z98.51 Tubal ligation status
CPT/HCPCS: 36415; 80053; 83690; 85025; 81001; 81025; 87086; 76830; 99284; 96374; 96361; J0696

== ENCOUNTER 2019-05-05 09:08 | Emergency (ER) | payer OTHER ==
[2019-05-05 09:20] VITALS: BP 131/81; PULSE 84; RESP 18; TEMP 98
--- NOTE | 2019-05-05 10:09 | ED ---
ENT HPI - General Chief complaint: ENT Stated complaint: ENT Time Seen by Provider: 05/05/19 09:30 Source: patient Mode of arrival: ambulatory Limitations: no limitations - History of Present Illness Initial comments: 33-year-old female presenting today for chief complaint of congestion, left ear pain and sore throat x 2 days. Patient states the past 2 days she has had congestion she states for the past day she has had left ear pain and sore throat. Admits to positive sick contacts with people within her home having similar symptoms. Patient denies fevers admits to chills. Denies cough chest pain or shortness of breath. Patient denies any nausea vomiting or diarrhea. Patient denies . Patient is considered an ear infection and presents emergency department today for evaluation upon arrival patient appears well no signs of acute distress she does not appear toxic in nature. - Related Data Previous Rx's Medication Instructions Recorded Clindamycin HCl [Cleocin] 300 mg PO Q6HR #40 cap 09/07/17 Sulfamethox-Tmp 800-160Mg [Bactrim 1 each PO Q12HR #14 tab 12/04/18 Ds] valACYclovir HCL [Valtrex] 1,000 mg PO Q12HR #20 tab 12/04/18 Azithromycin [Zithromax Z-pack] 0 mg PO DIRECTED #6 tab 05/05/19 Allergies Allergy/AdvReac Type Severity Reaction Status Date / Time Penicillins Allergy Rash/Hives Verified 05/05/19 09:16 strawberry Allergy Rash/Hives Verified 05/05/19 09:16 Review of Systems ROS Statement: Those systems with pertinent positive or pertinent negative responses have been documented in the HPI. ROS Other: All systems not noted in ROS Statement are negative. Past Medical History Past Medical History: Hypertension History of Any Multi-Drug Resistant Organisms: None Reported Past Surgical History: Section Additional Past Surgical History / Comment(s): c-sect x1 Past Psychological History: No Psychological Hx Reported Smoking Status: Current every day smoker Past Alcohol Use History: None Reported, Rare Past Drug Use History: None Reported General Exam - General Exam Comments Initial Comments: General: The patient is awake and alert, in no distress, and does not appear acutely ill. Eye: +3 mm pupils are equal, round and reactive to light, extra-ocular movements are intact. No nystagmus. There is normal conjunctiva bilaterally. No signs of icterus. No photophobia Ears, nose, mouth and throat: There are moist mucous membranes and no oral lesions. Oropharynx was midlly erythematous there is no tonsillar enlargement exudates or lesions. Uvula midline. Left TM erythematous without effusion EAC WNL. Tympanic membrane of the right ear is not erythematous or is no effusions bulging or retraction. No tenderness to palpation of the mastoid b/l. No anterior cervical lymphadenopathy. Rhinorrhea, clear and bilateral nares. No tripoding, no drooling. Neck: The neck is supple, there is no tenderness or JVD. No nuchal rigidity Cardiovascular: There is a regular rate and rhythm. No murmur, rub or gallop is appreciated. Respiratory: Lungs are clear to auscultation, respirations are non-labored, breath sounds are equal. No wheezes, stridor, rales, or rhonchi. No retractions or abdominal breathing. Gastrointestinal: Soft, non-distended, non-tender abdomen without masses or organomegaly noted. There is no rebound or guarding present. Bowel sounds are unremarkable. Musculoskeletal: Normal ROM, no tenderness. Strength 5/5. Sensation intact. Radial pulses equal bilaterally 2+. Neurological: A&O x 3. CN II-XII intact grossly, There are no obvious motor or sensory deficits. Coordination appears grossly intact. Speech appears normal, no muffling. Skin: Skin is warm and dry and no rashes or lesions are noted. No extremity edema Psychiatric: Cooperative Limitations: no limitations Course Vital Signs 05/05/19 09:17 Temperature 98.0 F Pulse Rate 84 Respiratory 18 Rate Blood Pressure 131/81 O2 Sat by Pulse 96 Oximetry Medical Decision Making - Medical Decision Making 33-year-old female presenting today for chief complaint of sore throat and left ear pain and evidence of otitis media ear examination is mildly erythematous oropharynx. Patient has amoxicillin ALLERGY. Patient does not appear toxic. Lungs clear denies any significant cough. Influenza testing negative at this time feel she is stable for discharge with azithromycin and primary care follow- up with primary to discuss at length patient was understanding and was discharged appearing well - Lab Data Lab Results 05/05/19 Range/Units 10:00 Influenza Type A RNA Not Detected (Not Detectd) Influenza Type B (PCR) Not Detected (Not Detectd) Disposition Clinical Impression: Otitis media, Congestion of nasal sinus, Pharyngitis Disposition: HOME SELF-CARE Condition: Good Instructions (If sedation given, give patient instructions): Ear Infection (ED) Additional Instructions: Please use medication as discussed. Please follow-up with family doctor in the next 2 days.. Please return to emergency room if the symptoms increase or worsen or for any other concerns. Prescriptions: Azithromycin [Zithromax Z-pack] 0 mg PO DIRECTED #6 tab Is patient prescribed a controlled substance at d/c from ED?: No Referrals: None,Stated [Primary Care Provider] - 1-2 days Time of Disposition: 10:33
== END 2019-05-05 10:50 | disposition home or self-care (01) ==
LOC: EC 09:08
DX: H66.92 Otitis media, unspecified, left ear (principal); J02.9 Acute pharyngitis, unspecified; R09.81 Nasal congestion; F17.200 Nicotine dependence, unspecified, uncomplicated; Z88.0 Allergy status to penicillin; Z91.018 Allergy to other foods
CPT/HCPCS: 87502; 99283

== ENCOUNTER 2019-05-11 12:52 | Emergency (ER) | payer OTHER ==
[2019-05-11 13:14] VITALS: BP 129/75; PULSE 88; RESP 18; TEMP 98
--- NOTE | 2019-05-11 14:22 | ED ---
URI HPI - General Chief Complaint: Upper Respiratory Infection Stated Complaint: recheck - sorethroat Time Seen by Provider: 05/11/19 13:17 Source: patient, RN notes reviewed, old records reviewed Mode of arrival: ambulatory Limitations: no limitations - History of Present Illness Initial Comments: 33 year old female with L ear pain, sore throat and congestion. She reports to completing azithromycin a few days ago for similiar complaints. She has been having symptoms for 2 weeks. She has been using OTCtreatments as well. Denies fever. - Related Data Previous Rx's Medication Instructions Recorded Clindamycin HCl [Cleocin] 300 mg PO Q6HR #40 cap 09/07/17 Sulfamethox-Tmp 800-160Mg [Bactrim 1 each PO Q12HR #14 tab 12/04/18 Ds] valACYclovir HCL [Valtrex] 1,000 mg PO Q12HR #20 tab 12/04/18 Azithromycin [Zithromax Z-pack] 0 mg PO DIRECTED #6 tab 05/05/19 Amoxic-Pot Clav 875-125Mg 1 tab PO Q12HR #20 tablet 05/11/19 [Augmentin 875-125] Fluticasone Propionate [Flonase 1 spray EA NOSTRIL QID #1 bottle 05/11/19 Allergy Relief] predniSONE [Deltasone] 20 mg PO BID #10 tab 05/11/19 Allergies Allergy/AdvReac Type Severity Reaction Status Date / Time Penicillins Allergy Rash/Hives Verified 05/05/19 09:16 strawberry Allergy Rash/Hives Verified 05/05/19 09:16 Review of Systems ROS Statement: Those systems with pertinent positive or pertinent negative responses have been documented in the HPI. ROS Other: All systems not noted in ROS Statement are negative. Past Medical History Past Medical History: Hypertension History of Any Multi-Drug Resistant Organisms: None Reported Past Surgical History: Section Additional Past Surgical History / Comment(s): c-sect x1 Past Psychological History: No Psychological Hx Reported Smoking Status: Current every day smoker Past Alcohol Use History: None Reported, Rare Past Drug Use History: None Reported General Exam - General Exam Comments Initial Comments: 33 year old female, no distress. Limitations: no limitations General appearance: alert, in no apparent distress Head exam: Present: atraumatic, normocephalic, normal inspection Eye exam: Present: normal appearance, PERRL, EOMI. Absent: scleral icterus, conjunctival injection, periorbital swelling ENT exam: Present: normal exam, mucous membranes moist, other (erythematous TM on R with effusion. Patient has sinus tenderness over ethomoid sinus. ). Absent: normal oropharynx (erythematous pharyngitis) Neck exam: Present: normal inspection. Absent: tenderness, meningismus, lymphadenopathy Respiratory exam: Present: normal lung sounds bilaterally. Absent: respiratory distress, wheezes, rales, rhonchi, stridor Cardiovascular Exam: Present: regular rate, normal rhythm, normal heart sounds. Absent: systolic murmur, diastolic murmur, rubs, gallop, clicks GI/Abdominal exam: Present: soft, normal bowel sounds. Absent: distended, tenderness, guarding, rebound, rigid Extremities exam: Present: normal inspection, full ROM, normal capillary refill. Absent: tenderness, pedal edema, joint swelling, calf tenderness Back exam: Present: normal inspection Neurological exam: Present: alert, oriented X3, CN II-XII intact Psychiatric exam: Present: normal affect, normal mood Course Vital Signs 05/11/19 05/11/19 05/11/19 13:11 13:22 14:30 Temperature 98.0 F 98.0 F Pulse Rate 88 88 Respiratory 18 18 18 Rate Blood Pressure 129/75 129/75 O2 Sat by Pulse 100 100 Oximetry Medical Decision Making - Medical Decision Making 33 year old with sinusitis, pharyngitis, and ear pain. Patient vitals are stable. Lungs are clear, and appears in no distress. SHe has sinus tenderness, and evinece of effusion in TM. Will DC patient with steriods, augmentin and advised PCP follow up. Given note for work. - Lab Data Lab Results 05/11/19 Range/Units 14:04 Group A Strep Rapid Negative (Negative) Disposition Clinical Impression: Pharyngitis, Otitis Disposition: HOME SELF-CARE Condition: Good Instructions (If sedation given, give patient instructions): Upper Respiratory Infection (ED) Additional Instructions: Please use medication as discussed. Please follow up with family doctor if symptoms have not improved over the next two days. Please return to the emergency room if your symptoms increase or worsen or for any other concerns. Prescriptions: Amoxic-Pot Clav 875-125Mg [Augmentin 875-125] 1 tab PO Q12HR #20 tablet predniSONE [Deltasone] 20 mg PO BID #10 tab Fluticasone Propionate [Flonase Allergy Relief] 1 spray EA NOSTRIL QID #1 bottle Is patient prescribed a controlled substance at d/c from ED?: No Referrals: None,Stated [Primary Care Provider] - 1-2 days Time of Disposition: 14:19
== END 2019-05-11 14:30 | disposition home or self-care (01) ==
LOC: EC 12:52
DX: J02.9 Acute pharyngitis, unspecified (principal); H66.92 Otitis media, unspecified, left ear; I10 Essential (primary) hypertension; F17.200 Nicotine dependence, unspecified, uncomplicated; Z91.018 Allergy to other foods; Z88.0 Allergy status to penicillin
CPT/HCPCS: 87081; 87430; 99284

== ENCOUNTER 2019-06-11 16:41 | Emergency (ER) | payer OTHER ==
[2019-06-11 16:44] VITALS: BP 150/99; RESP 18; TEMP 99.2
[2019-06-11 16:47] VITALS: PULSE 91
--- NOTE | 2019-06-11 17:24 | ED ---
General Adult HPI - General Chief complaint: ENT Stated complaint: ear infection & neck pain Time Seen by Provider: 06/11/19 16:49 Source: patient, RN notes reviewed Mode of arrival: ambulatory Limitations: no limitations - History of Present Illness Initial comments: 33-year-old female presents for left ear pain 4 days. Patient states she has had problems with her ear for the past 2 months. Patient has been on azithromycin and Augmentin in the past 2 months. States that the last dose of Augmentin clear to per ear pain however 4 days ago it started again. States it is a sharp pain in the left ear that radiates down to the left jaw. Denies any dental pain. Denies any swelling. Denies any posterior neck pain. Denies headaches. Denies fevers.Patient has no other complaints at this time including shortness of breath, chest pain, abdominal pain, nausea or vomiting, headache, or visual changes. - Related Data Previous Rx's Medication Instructions Recorded Clindamycin HCl [Cleocin] 300 mg PO Q6HR #40 cap 09/07/17 Sulfamethox-Tmp 800-160Mg [Bactrim 1 each PO Q12HR #14 tab 12/04/18 Ds] valACYclovir HCL [Valtrex] 1,000 mg PO Q12HR #20 tab 12/04/18 Azithromycin [Zithromax Z-pack] 0 mg PO DIRECTED #6 tab 05/05/19 Amoxic-Pot Clav 875-125Mg 1 tab PO Q12HR #20 tablet 05/11/19 [Augmentin 875-125] Fluticasone Propionate [Flonase 1 spray EA NOSTRIL QID #1 bottle 05/11/19 Allergy Relief] predniSONE [Deltasone] 20 mg PO BID #10 tab 05/11/19 Amoxicillin/Potassium Clav 1 tab PO Q12HR #20 tab 06/11/19 [Augmentin 875-125 Tablet] Allergies Allergy/AdvReac Type Severity Reaction Status Date / Time Penicillins Allergy Rash/Hives Verified 06/11/19 16:44 strawberry Allergy Rash/Hives Verified 06/11/19 16:44 Review of Systems ROS Statement: Those systems with pertinent positive or pertinent negative responses have been documented in the HPI. ROS Other: All systems not noted in ROS Statement are negative. Past Medical History Past Medical History: Hypertension History of Any Multi-Drug Resistant Organisms: None Reported Past Surgical History: Section Additional Past Surgical History / Comment(s): c-sect x1 Past Psychological History: No Psychological Hx Reported Smoking Status: Current every day smoker Past Alcohol Use History: None Reported, Rare Past Drug Use History: None Reported General Exam Limitations: no limitations General appearance: alert, in no apparent distress Head exam: Present: atraumatic, normocephalic, normal inspection Eye exam: Present: normal appearance, PERRL, EOMI. Absent: scleral icterus, conjunctival injection, periorbital swelling ENT exam: Present: normal oropharynx (No abscesses of the teeth. No tenderness to palpation of the gum line. No tenderness to percussion of the teeth. No pain when biting down on tongue blade.), normal external ear exam. Absent: TM's normal bilaterally (L Tympanic membrane is erythematous, appears inflamed. No tympanic membrane perforation. Right tympanic membrane is within normal limits) Neck exam: Present: normal inspection, full ROM. Absent: tenderness, meningismus, lymphadenopathy Respiratory exam: Present: normal lung sounds bilaterally. Absent: respiratory distress, wheezes, rales, rhonchi, stridor Cardiovascular Exam: Present: regular rate, normal rhythm, normal heart sounds. Absent: systolic murmur, diastolic murmur, rubs, gallop, clicks GI/Abdominal exam: Present: soft, normal bowel sounds. Absent: distended, tenderness, guarding, rebound, rigid Course Vital Signs 06/11/19 16:42 Temperature 99.2 F Pulse Rate 91 Respiratory 18 Rate Blood Pressure 150/99 O2 Sat by Pulse 99 Oximetry Medical Decision Making - Medical Decision Making Patient does have an erythematous left tympanic membrane. There is no neck pain or stiffness. Pain radiates to the left jaw but patient does not have any signs of dental infection. I will restart patient on Augmentin and nasal spray however discuss that she needs to see an ENT as she has not followed up with anyone and this is her third ER visit for similar complaints. Discussed to return here if she has worsening symptoms prior to being able to see ENT.I discussed this case with attending Dr. Tian who agrees with this assessment and treatment plan. Disposition Clinical Impression: Otitis media, Ear pain, left Disposition: HOME SELF-CARE Condition: Good Instructions (If sedation given, give patient instructions): Earache (ED) Additional Instructions: Please continue to use nasal spray. Take Augmentin as directed. Follow up with ENT in 1-2 days. If you have any worsening symptoms return here to the emergency department. Prescriptions: Amoxicillin/Potassium Clav [Augmentin 875-125 Tablet] 1 tab PO Q12HR #20 tab Is patient prescribed a controlled substance at d/c from ED?: No Referrals: Srikanth Gray MD [REFERRING] - 1-2 days Garry Zambrano MD [STAFF PHYSICIAN] - 1-2 days Time of Disposition: 17:25
== END 2019-06-11 17:30 | disposition home or self-care (01) ==
LOC: EC 16:41
DX: H66.92 Otitis media, unspecified, left ear (principal); F17.200 Nicotine dependence, unspecified, uncomplicated; Z88.0 Allergy status to penicillin; Z91.018 Allergy to other foods
CPT/HCPCS: 99283

== ENCOUNTER 2019-08-28 23:50 | Emergency (ER) | payer OTHER ==
[2019-08-29] VITALS: BP 165/90; PULSE 85; RESP 18; TEMP 98.3
[2019-08-29] MEDS ORDERED: CLINDAMYCIN 150 MG CAP PO STA (00:42)
[2019-08-29] MEDS ORDERED: Acetaminophen-Codeine 300-30mg TAB PO STA (00:42)
[2019-08-29] MEDS ORDERED: ACET/COD 300 MG/30 MG STARTER PACK 6 TAB BTL PO STA (00:42)
--- NOTE | 2019-08-29 00:43 | ED ---
ENT HPI - General Chief complaint: Dental/Oral Stated complaint: Jaw and facial pain Time Seen by Provider: 08/29/19 00:15 Source: patient, RN notes reviewed, old records reviewed Mode of arrival: ambulatory Limitations: no limitations - History of Present Illness MD complaint: tooth pain, ear pain -: days(s) Location: L ear, tooth # (r upper rear) Severity: moderate Severity scale (1-10): 4 Quality: aching Consistency: constant Improves with: none Worsens with: none Context- Dental: history of dental caries, poor dental care Associated Symptoms: toothache, pain with swallowing - Related Data Previous Rx's Medication Instructions Recorded Clindamycin HCl [Cleocin] 300 mg PO Q6HR #40 cap 09/07/17 Sulfamethox-Tmp 800-160Mg [Bactrim 1 each PO Q12HR #14 tab 12/04/18 Ds] valACYclovir HCL [Valtrex] 1,000 mg PO Q12HR #20 tab 12/04/18 Azithromycin [Zithromax Z-pack] 0 mg PO DIRECTED #6 tab 05/05/19 Amoxic-Pot Clav 875-125Mg 1 tab PO Q12HR #20 tablet 05/11/19 [Augmentin 875-125] Fluticasone Propionate [Flonase 1 spray EA NOSTRIL QID #1 bottle 05/11/19 Allergy Relief] predniSONE [Deltasone] 20 mg PO BID #10 tab 05/11/19 Amoxicillin/Potassium Clav 1 tab PO Q12HR #20 tab 06/11/19 [Augmentin 875-125 Tablet] Clindamycin HCl [Cleocin] 300 mg PO Q6HR #40 cap 08/29/19 Allergies Allergy/AdvReac Type Severity Reaction Status Date / Time Penicillins Allergy Rash/Hives Verified 08/29/19 00:00 strawberry Allergy Rash/Hives Verified 08/29/19 00:00 Review of Systems ROS Statement: Those systems with pertinent positive or pertinent negative responses have been documented in the HPI. ROS Other: All systems not noted in ROS Statement are negative. Past Medical History Past Medical History: Hypertension History of Any Multi-Drug Resistant Organisms: None Reported Past Surgical History: Section Additional Past Surgical History / Comment(s): c-sect x2 Past Psychological History: No Psychological Hx Reported Smoking Status: Current every day smoker Past Alcohol Use History: None Reported Past Drug Use History: Marijuana General Exam Limitations: no limitations General appearance: alert, in no apparent distress Head exam: Present: atraumatic, normocephalic, normal inspection Eye exam: Present: normal appearance, PERRL, EOMI. Absent: scleral icterus, conjunctival injection, periorbital swelling ENT exam: Present: normal exam, mucous membranes moist Neck exam: Present: normal inspection. Absent: tenderness, meningismus, lymphadenopathy Respiratory exam: Present: normal lung sounds bilaterally. Absent: respiratory distress, wheezes, rales, rhonchi, stridor Cardiovascular Exam: Present: regular rate, normal rhythm, normal heart sounds. Absent: systolic murmur, diastolic murmur, rubs, gallop, clicks GI/Abdominal exam: Present: soft, normal bowel sounds. Absent: distended, tenderness, guarding, rebound, rigid Extremities exam: Present: normal inspection, full ROM, normal capillary refill. Absent: tenderness, pedal edema, joint swelling, calf tenderness Back exam: Present: normal inspection Neurological exam: Present: alert, oriented X3, CN II-XII intact Psychiatric exam: Present: normal affect, normal mood Skin exam: Present: warm, dry, intact, normal color. Absent: rash Course Vital Signs 08/28/19 23:58 Temperature 98.3 F Pulse Rate 85 Respiratory 18 Rate Blood Pressure 165/90 O2 Sat by Pulse 100 Oximetry Disposition Clinical Impression: Dental abscess, Dental caries Disposition: HOME SELF-CARE Condition: Good Instructions (If sedation given, give patient instructions): Dental Abscess (ED), Toothache (ED) Prescriptions: Clindamycin HCl [Cleocin] 300 mg PO Q6HR #40 cap Is patient prescribed a controlled substance at d/c from ED?: No Referrals: Angela Ferris MD [Primary Care Provider] - 1-2 days
== END 2019-08-29 00:51 | disposition home or self-care (01) ==
LOC: EC 23:50
DX: K04.7 Periapical abscess without sinus (principal); K02.9 Dental caries, unspecified; F17.200 Nicotine dependence, unspecified, uncomplicated; Z88.0 Allergy status to penicillin; Z91.018 Allergy to other foods
CPT/HCPCS: 99283

== ENCOUNTER 2022-09-26 14:51 | Emergency (ER) | payer OTHER ==
[2022-09-26 14:56] VITALS: PULSE 98
[2022-09-26] MEDS ORDERED: Acetaminophen-Codeine 300-30mg TAB PO STA (16:24)
[2022-09-26] MEDS ORDERED: ACET/COD 300 MG/30 MG STARTER PACK 6 TAB BTL PO STA (16:24)
--- NOTE | 2022-09-26 16:31 | ED ---
General Adult HPI - General Chief complaint: Dental/Oral Stated complaint: dental pain Time Seen by Provider: 09/26/22 16:02 Source: patient, RN notes reviewed Mode of arrival: ambulatory Limitations: no limitations - History of Present Illness Initial comments: 36-year-old female presents emergency department chief complaint of dental pain. Patient states that she has been having pain for quite some time but yesterday she noticed the pain was worse and she had to be seen at urgent care. She reports pain on her right sided mouth upper and lower dentition. She was prescribed a medrol dose pack and clindamycin which she states she has been taking. She also reports taking motrin 800mg for pain which is not helping. Last dose of motrin was at 1230. She states she has an appointment for extraction of her wisdom teeth on 10/18/22. Patient is otherwise healthy and takes no daily medications. - Related Data Previous Rx's Medication Instructions Recorded clindamycin HCL [Cleocin] 300 mg PO Q6HR #40 cap 09/07/17 Sulfamethox-Tmp 800-160Mg [Bactrim 1 each PO Q12HR #14 tab 12/04/18 Ds] valACYclovir HCL [Valtrex] 1,000 mg PO Q12HR #20 tab 12/04/18 Azithromycin [Zithromax Z-pack (6 0 mg PO DIRECTED #6 tab 05/05/19 tabs)] Amoxic-Pot Clav 875-125Mg 1 tab PO Q12HR #20 tablet 05/11/19 [Augmentin 875-125] Fluticasone Propionate [Flonase 1 spray EA NOSTRIL QID #1 bottle 05/11/19 Allergy Relief] predniSONE [Deltasone] 20 mg PO BID #10 tab 05/11/19 Amoxicillin/Potassium Clav 1 tab PO Q12HR #20 tab 06/11/19 [Augmentin 875-125 Tablet] clindamycin HCL [Cleocin] 300 mg PO Q6HR #40 cap 08/29/19 Allergies Allergy/AdvReac Type Severity Reaction Status Date / Time Penicillins Allergy Rash/Hives Verified 09/26/22 14:56 strawberry Allergy Rash/Hives Verified 09/26/22 14:56 Review of Systems ROS Statement: Those systems with pertinent positive or pertinent negative responses have been documented in the HPI. ROS Other: All systems not noted in ROS Statement are negative. Past Medical History Past Medical History: Hypertension History of Any Multi-Drug Resistant Organisms: None Reported Past Surgical History: Section Additional Past Surgical History / Comment(s): c-sect x2 Past Psychological History: No Psychological Hx Reported Smoking Status: Current every day smoker Past Alcohol Use History: None Reported Past Drug Use History: Marijuana General Exam Limitations: no limitations General appearance: alert, in no apparent distress Head exam: Present: atraumatic, normocephalic, normal inspection Eye exam: Present: normal appearance, PERRL, EOMI. Absent: scleral icterus, conjunctival injection, periorbital swelling ENT exam: Present: mucous membranes moist, other (dental caries and impaction of lower right sided wisdom tooth without abscess) Neck exam: Present: normal inspection, full ROM. Absent: tenderness, meningismus, lymphadenopathy Respiratory exam: Present: normal lung sounds bilaterally. Absent: respiratory distress, wheezes, rales, rhonchi, stridor Cardiovascular Exam: Present: regular rate, normal rhythm, normal heart sounds. Absent: systolic murmur, diastolic murmur, rubs, gallop, clicks Extremities exam: Present: normal inspection, full ROM, normal capillary refill. Absent: tenderness, pedal edema, joint swelling, calf tenderness Back exam: Present: normal inspection Neurological exam: Present: alert, oriented X3 Psychiatric exam: Present: normal affect, normal mood Skin exam: Present: warm, dry, intact, normal color. Absent: rash Course Vital Signs 09/26/22 09/26/22 14:52 16:52 Temperature 98.1 F 98 F Pulse Rate 98 98 Respiratory 20 18 Rate Blood Pressure 164/97 147/89 O2 Sat by Pulse 99 99 Oximetry Medical Decision Making - Medical Decision Making Was pt. sent in by a medical professional or institution (, PA, ACCOUNTS RECEIVABLE BOOKKEEPER, urgent care, hospital, or [place] [facility] facility...) When possible be specific @ -No Did you speak to anyone other than the patient for history (EMS, parent, family, police, friend...)? What history was obtained from this source @ -No Did you review nursing and triage notes (agree or disagree)? Why? @ -I reviewed and agree with nursing and triage notes Were old charts reviewed (outside hosp., previous admission, EMS record, old EKG, old radiological studies, urgent care reports/EKG's, [place] [facility] facility records)? Report findings @ -None Differential Diagnosis (chest pain, altered mental status, abdominal pain women, abdominal pain men, vaginal bleeding, weakness, fever, dyspnea, syncope, headache, dizziness, GI bleed, back pain, seizure, CVA, palpatations, mental health, musculoskeletal)? @ -Dental caries, dental infection, dental abscess, peritonisilar abscess, tonsillitis, this list is not all inclusive EKG interpreted by me (3pts min.). @ -None X-rays interpreted by me (1pt min.). @ -None done CT interpreted by me (1pt min.). @ -None done U/S interpreted by me (1pt. min.). @ -None done What testing was considered but not performed or refused? (CT, X-rays, U/S, labs)? Why? @ -None What meds were considered but not given or refused? Why? @ -None Did you discuss the management of the patient with other professionals (professionals i.e. , PA, ACCOUNTS RECEIVABLE BOOKKEEPER, lab, RT, psych nurse, manager social media, risk control consultant, teacher, environmental conservation officer, manager rn case)? Give summary @ -No Was smoking cessation discussed for >3mins.? @ -No Was critical care preformed (if so, how long)? @ -No Were there social determinants of health that impacted care today? How? (Homelessness, low income, unemployed, alcoholism, drug addiction, transportation, low edu. Level, literacy, decrease access to med. care, long term, rehab)? @ -No Was there de-escalation of care discussed even if they declined (Discuss DNR or withdrawal of care, Hospice)? DNR status @ -No What co-morbidities impacted this encounter? (DM, HTN, Smoking, COPD, CAD, Cancer, CVA, ARF, Chemo, Hep., AIDS, mental health diagnosis, sleep apnea, morbid obesity)? @ -None Was patient admitted / discharged? Hospital course, mention meds given and route, prescriptions, significant lab abnormalities, going to OR and other pertinent info. @ -Discharged. Patient presented to emergency department chief complaint of dental pain. Patient reports a worsening of dental pain 1 day and was seen in the clinic where she was prescribed clindamycin and a medrol dose pack which she has been taking. She also reports taking Motrin for the pain. On examination, patient is well-appearing, handling secretions, oropharynx nonerythematous, no visible dental abscess. Patient was given Tylenol 3 and a starter pack to go home with and advised follow-up with her dentist. Recommended discontinuing the Medrol Dosepak and continuing clindamycin, Motrin 800mg every 8 hours as needed for pain along with the Tylenol 3. Patient discharged in stable condition. Case discussed with my attending, Dr. Mrogan Undiagnosed new problem with uncertain prognosis? @ -No Drug Therapy requiring intensive monitoring for toxicity (Heparin, Nitro, Insulin, Cardizem)? @ -No Were any procedures done? @ -No Diagnosis/symptom? @ -impacted molar Acute, or Chronic, or Acute on Chronic? @ -acute Uncomplicated (without systemic symptoms) or Complicated (systemic symptoms)? @ -uncomplicated Side effects of treatment? @ -No Exacerbation, Progression, or Severe Exacerbation? @ -No Poses a threat to life or bodily function? How? (Chest pain, USA, MD, pneumonia, PE, COPD, DKA, ARF, appy, cholecystitis, CVA, Diverticulitis, Homicidal, Suicidal, threat to staff... and all critical care pts) @ -No Disposition Clinical Impression: Impacted molar Disposition: HOME SELF-CARE Condition: Stable Instructions (If sedation given, give patient instructions): Toothache (ED) Additional Instructions: Please follow up with your dentist. Continue Motrin 800mg every 8 hours. Take clindamycin to completion. Return to the emergency department for new or worsening symptoms. Is patient prescribed a controlled substance at d/c from ED?: No Referrals: Angela Ferris MD [Primary Care Provider] - 1-2 days Time of Disposition: 16:33
[2022-09-26 16:53] VITALS: BP 147/89; RESP 18; TEMP 98
== END 2022-09-26 17:03 | disposition home or self-care (01) ==
LOC: EC 14:51
DX: K01.1 Impacted teeth (principal); I10 Essential (primary) hypertension; F17.200 Nicotine dependence, unspecified, uncomplicated; F12.90 Cannabis use, unspecified, uncomplicated; Z91.018 Allergy to other foods; Z88.0 Allergy status to penicillin
CPT/HCPCS: 99282

== ENCOUNTER 2022-10-18 12:18 | Emergency (ER) | payer OTHER ==
--- NOTE | 2022-10-18 12:44 | ED ---
General Adult HPI - General Chief complaint: Recheck/Abnormal Lab/Rx Stated complaint: hypertension Time Seen by Provider: 10/18/22 12:25 Source: patient Mode of arrival: ambulatory Limitations: no limitations - History of Present Illness Initial comments: 36-year-old female presents to the emergency room reporting hypertension. Went to her dentist office today to have teeth extracted. They took her blood pressure and it was high. Reports that she did have history of high blood pressure, especially while . Reports that she lost weight and her blood pressure seemed to improve on its own and therefore she does not take anything at this time. She admits that she has been having infrequent headaches. Has had some face pressure. No shortness of breath. No chest pain. No concern for at this time. No other alleviating, precipitating or modifying factors - Related Data Previous Rx's Medication Instructions Recorded clindamycin HCL [Cleocin] 300 mg PO Q6HR #40 cap 09/07/17 Sulfamethox-Tmp 800-160Mg [Bactrim 1 each PO Q12HR #14 tab 12/04/18 Ds] valACYclovir HCL [Valtrex] 1,000 mg PO Q12HR #20 tab 12/04/18 Azithromycin [Zithromax Z-pack (6 0 mg PO DIRECTED #6 tab 05/05/19 tabs)] Amoxic-Pot Clav 875-125Mg 1 tab PO Q12HR #20 tablet 05/11/19 [Augmentin 875-125] Fluticasone Propionate [Flonase 1 spray EA NOSTRIL QID #1 bottle 05/11/19 Allergy Relief] predniSONE [Deltasone] 20 mg PO BID #10 tab 05/11/19 Amoxicillin/Potassium Clav 1 tab PO Q12HR #20 tab 06/11/19 [Augmentin 875-125 Tablet] clindamycin HCL [Cleocin] 300 mg PO Q6HR #40 cap 08/29/19 amLODIPine [Norvasc] 2.5 mg PO DAILY #30 tablet 10/18/22 Allergies Allergy/AdvReac Type Severity Reaction Status Date / Time Penicillins Allergy Rash/Hives Verified 09/26/22 14:56 strawberry Allergy Rash/Hives Verified 09/26/22 14:56 Review of Systems ROS Statement: Those systems with pertinent positive or pertinent negative responses have been documented in the HPI. ROS Other: All systems not noted in ROS Statement are negative. Past Medical History Past Medical History: Hypertension History of Any Multi-Drug Resistant Organisms: None Reported Past Surgical History: Section Additional Past Surgical History / Comment(s): c-sect x2 Past Psychological History: No Psychological Hx Reported Smoking Status: Current every day smoker Past Alcohol Use History: None Reported Past Drug Use History: Marijuana General Exam Limitations: no limitations General appearance: alert, in no apparent distress Head exam: Present: atraumatic, normocephalic, normal inspection Eye exam: Present: normal appearance, PERRL, EOMI. Absent: scleral icterus, conjunctival injection, periorbital swelling ENT exam: Present: normal exam, mucous membranes moist Neck exam: Present: normal inspection. Absent: tenderness, meningismus, lymphadenopathy Respiratory exam: Present: normal lung sounds bilaterally. Absent: respiratory distress, wheezes, rales, rhonchi, stridor Cardiovascular Exam: Present: regular rate, normal rhythm, normal heart sounds. Absent: systolic murmur, diastolic murmur, rubs, gallop, clicks GI/Abdominal exam: Present: soft, normal bowel sounds. Absent: distended, tenderness, guarding, rebound, rigid Extremities exam: Present: normal inspection, full ROM, normal capillary refill. Absent: tenderness, pedal edema, joint swelling, calf tenderness Back exam: Present: normal inspection Neurological exam: Present: alert, oriented X3, CN II-XII intact Psychiatric exam: Present: normal affect, normal mood Skin exam: Present: warm, dry, intact, normal color. Absent: rash Course Vital Signs 10/18/22 10/18/22 10/18/22 12:19 12:34 12:40 Temperature 98.3 F Pulse Rate 100 79 84 Respiratory 20 18 17 Rate Blood Pressure 168/96 136/77 135/86 O2 Sat by Pulse 99 98 97 Oximetry 10/18/22 10/18/22 10/18/22 13:10 14:09 15:01 Temperature 98.0 F Pulse Rate 80 78 Respiratory 17 18 Rate Blood Pressure 129/82 126/77 O2 Sat by Pulse 97 95 Oximetry Medical Decision Making - Medical Decision Making Was pt. sent in by a medical professional or institution (, PA, JOCKEY AGENT, urgent care, hospital, or alf...) When possible be specific @ -dentist Did you speak to anyone other than the patient for history (EMS, parent, family, police, friend...)? What history was obtained from this source @ -No Did you review nursing and triage notes (agree or disagree)? Why? @ -I reviewed and agree with nursing and triage notes Were old charts reviewed (outside hosp., previous admission, EMS record, old E KG, old radiological studies, urgent care reports/EKG's, alf records)? Report findings @ -No old charts were reviewed Differential Diagnosis (chest pain, altered mental status, abdominal pain women, abdominal pain men, vaginal bleeding, weakness, fever, dyspnea, syncope, headache, dizziness, GI bleed, back pain, seizure, CVA, palpatations, mental hea lth, musculoskeletal)? @ -htn, acc htn, renal artery stensis EKG interpreted by me (3pts min.). @ -Yes and demonstrates sinus rhythm with a rate of 88. ME interval 149. QRS 89. QTC of 458. No acute ST segment elevations or depressions X-rays interpreted by me (1pt min.). @ -None done CT interpreted by me (1pt min.). @ -None done U/S interpreted by me (1pt. min.). @ -None done What testing was considered but not performed or refused? (CT, X-rays, U/S, labs)? Why? @ -None What meds were considered but not given or refused? Why? @ -None Did you discuss the management of the patient with other professionals (professionals i.e. ., PA, JOCKEY AGENT, lab, RT, psych nurse, geriatric social worker, integration manager, teacher, traffic maintenance officer, sample case porter)? Give summary @ -No Was smoking cessation discussed for >3mins.? @ -No Was critical care preformed (if so, how long)? @ -No Were there social determinants of health that impacted care today? How? (Homelessness, low income, unemployed, alcoholism, drug addiction, transportation, low edu. Level, literacy, decrease access to med. care, usp, rehab)? @ -No Was there de-escalation of care discussed even if they declined (Discuss DNR or withdrawal of care, Hospice)? DNR status @ -No What co-morbidities impacted this encounter? (DM, HTN, Smoking, COPD, CAD, Cancer, CVA, ARF, Chemo, Hep., AIDS, mental health diagnosis, sleep apnea, morbid obesity)? @ -htn Was patient admitted / discharged? Hospital course, mention meds given and route, prescriptions, significant lab abnormalities, going to OR and other pertinent info. @ -Upon arrival patient is placed into room 28. A thorough history and physical exam was performed. Blood pressures trended and patient does have acceptable blood pressures. Conducted laboratory studies. Discussed results with the patient. Do not necessarily feel that the patient needs blood pressure treatment at this time however she reports that her blood pressures do elevate when she is at home. She is instructed to buy a blood pressure cuff, keep a log. If she continues to have elevated blood pressures above 130/90 when she began taking the blood pressure medication. She is to follow-up with her primary care doctor. Take her log with her. Return for any new or worsening symptoms. Patient agreeable to the plan and was discharged in stable condition Undiagnosed new problem with uncertain prognosis? @ -yes Drug Therapy requiring intensive monitoring for toxicity (Heparin, Nitro, Insulin, Cardizem)? @ -No Were any procedures done? @ -No Diagnosis/symptom? @ -accelerated htn Acute, or Chronic, or Acute on Chronic? @ -acute Uncomplicated (without systemic symptoms) or Complicated (systemic symptoms)? @ -uncomlicated Side effects of treatment? @ -No Exacerbation, Progression, or Severe Exacerbation? @ -No Poses a threat to life or bodily function? How? (Chest pain, USA, MD, pneumonia, PE, COPD, DKA, ARF, appy, cholecystitis, CVA, Diverticulitis, Homicidal, Suicidal, threat to staff... and all critical care pts) @ -No - Lab Data Result diagrams: 10/18/22 13:20 10/18/22 13:20 Lab Results 10/18/22 10/18/22 Range/Units 13:20 13:20 WBC 9.3 (3.8-10.6) k/uL RBC 4.91 (3.80-5.40) m/uL Hgb 15.5 (11.4-16.0) gm/dL Hct 44.7 (34.0-46.0) % MCV 91.0 (80.0-100.0) fL MCH 31.6 (25.0-35.0) pg MCHC 34.7 (31.0-37.0) g/dL RDW 13.0 (11.5-15.5) % Plt Count 74 L (150-450) k/uL MPV 11.3 Neutrophils % 77 % Lymphocytes % 16 % Monocytes % 3 % Eosinophils % 3 % Basophils % 0 % Neutrophils # 7.1 (1.3-7.7) k/uL Lymphocytes # 1.5 (1.0-4.8) k/uL Monocytes # 0.3 (0-1.0) k/uL Eosinophils # 0.3 (0-0.7) k/uL Basophils # 0.0 (0-0.2) k/uL Manual Slide Review Performed Large Platelets Present Sodium 138 (137-145) mmol/L Potassium 3.9 (3.5-5.1) mmol/L Chloride 108 H (98-107) mmol/L Carbon Dioxide 20 L (22-30) mmol/L Anion Gap 10 mmol/L BUN 11 (7-17) mg/dL Creatinine 0.68 (0.52-1.04) mg/dL Est GFR (CKD-EPI)AfAm >90 (>60 ml/min/1.73 sqM) Est GFR (CKD-EPI)NonAf >90 (>60 ml/min/1.73 sqM) Glucose 159 H (74-99) mg/dL Calcium 8.8 (8.4-10.2) mg/dL Total Bilirubin 0.9 (0.2-1.3) mg/dL AST 31 (14-36) U/L ALT 31 (4-34) U/L Alkaline Phosphatase 85 (38-126) U/L Total Protein 7.3 (6.3-8.2) g/dL Albumin 4.2 (3.5-5.0) g/dL Disposition Clinical Impression: Hypertension Disposition: HOME SELF-CARE Condition: Stable Instructions (If sedation given, give patient instructions): Hypertension (ED) Additional Instructions: Please check your blood pressures 3 times a day and keep a log. Started taking the blood pressure medication next week if your blood pressure consistently remains above 130/90. Follow up with your doctor and take this log with you. They also need to check a fasting glucose or hemoglobin A1c. Return to the emergency room for any new or worsening symptoms Prescriptions: amLODIPine [Norvasc] 2.5 mg PO DAILY #30 tablet Is patient prescribed a controlled substance at d/c from ED?: No Referrals: Angela Ferris MD [Primary Care Provider] - 1-2 days Time of Disposition: 14:53
[2022-10-18 13:37] LABS: ALT 31 U/L (4-34); AST 31 U/L (14-36); African American GFR (CKD) >90 (>60 ml/min/1.73 sqM); Albumin 4.2 g/dL (3.5-5.0); Alkaline Phosphatase 85 U/L (38-126); Anion Gap 10 mmol/L; Blood Urea Nitrogen 11 mg/dL (7-17); Calcium 8.8 mg/dL (8.4-10.2); Carbon Dioxide 20 mmol/L (22-30); Chloride 108 mmol/L (98-107); Glucose 159 mg/dL (74-99); Non-African American GFR(CKD) >90 (>60 ml/min/1.73 sqM); Potassium 3.9 mmol/L (3.5-5.1); Sodium 138 mmol/L (137-145); Total Bilirubin 0.9 mg/dL (0.2-1.3); Total Protein 7.3 g/dL (6.3-8.2)
[2022-10-18 13:51] LABS: Basophils % (A) 0 %; Eosinophils # (A) 0.3 k/uL (0-0.7); Eosinophils % (A) 3 %; HCT 44.7 % (34.0-46.0); HGB 15.5 gm/dL (11.4-16.0); Lymphocytes # (A) 1.5 k/uL (1.0-4.8); Lymphocytes % (A) 16 %; MCH 31.6 pg (25.0-35.0); MCHC 34.7 g/dL (31.0-37.0); Mean Platelet Volume 11.3; Monocytes # (A) 0.3 k/uL (0-1.0); Monocytes % (A) 3 %; Neutrophils # (A) 7.1 k/uL (1.3-7.7); Neutrophils % (A) 77 %; RBC 4.91 m/uL (3.80-5.40); WBC 9.3 k/uL (3.8-10.6)
[2022-10-18 14:11] VITALS: BP 126/77; PULSE 78; RESP 18
[2022-10-18 14:23] LABS: Platelet Count 74 k/uL (150-450)
[2022-10-18 14:25] LABS: Large Platelets Present
[2022-10-18 15:01] VITALS: TEMP 98
== END 2022-10-18 15:09 | disposition home or self-care (01) ==
LOC: EC 12:18
DX: I10 Essential (primary) hypertension (principal); F17.200 Nicotine dependence, unspecified, uncomplicated; F12.90 Cannabis use, unspecified, uncomplicated; Z79.899 Other long term (current) drug therapy; Z88.0 Allergy status to penicillin; Z91.018 Allergy to other foods
CPT/HCPCS: 36415; 80053; 85025; 93005; 99284

== ENCOUNTER → 2023-02-06 | Outpatient (CLI) | payer OTHER ==
--- NOTE | 2023-02-06 08:44 | US ---
EXAMINATION TYPE: US thyroid st tissue head/neck DATE OF EXAM: 02/06/2023 COMPARISON: NONE CLINICAL INDICATION: Female, 37 years old with history of E03.9 hypothyroidism, I10 hypertension; GLAND SIZE: Right Lobe: 7.0 x 1.9 x 2.4 cm, enlarged Overall Parenchyma: heterogenous Left Lobe: 4.0 x 1.4 x 1.4 cm Overall Parenchyma: heterogenous Isthmus Thickness: 0.8 cm NODULES RIGHT: # of nodules measured on right: 0 LEFT: # of nodules measured on left: 0 ISTHMUS: # of nodules measured in the isthmus: 0 Bilateral neck scanned, no evidence of lymphadenopathy. IMPRESSION: No thyroid nodules. Heterogenous thyroid gland compatible with thyroiditis, correlate wit h serum markers.
--- NOTE | 2023-02-06 08:45 | US ---
EXAMINATION TYPE: US renal artery duplex complete DATE OF EXAM: 02/06/2023 COMPARISON: NONE CLINICAL INDICATION: Female, 37 years old with history of E03.9 hypothyroidism, I10 hypertension; MEASUREMENTS: RENAL SIZE: Rt Kidney: 10.9 x 4.8 x 4.4cm Lt Kidney: 11.6 x 4.9 x 5.7cm RESISTANCE INDEX Right: 0.57 Left: 0.55 RA/AO RATIO (< 3.5 ) Right: 1.9 Left: 1.7 RA VELOCITY ( < 180 cm/s) Right: 139.2cm/s Left: 122.3cm/s Aorta and Kidneys - appear wnl No evidence of renal artery stenosis seen at this time IMPRESSION: No evidence for renal artery stenosis.
== END | disposition home or self-care (01) ==
LOC: RADUSWWP 06:47
PROVIDERS: ATTEND Family Medicine
DX: E03.9 Hypothyroidism, unspecified (principal); I10 Essential (primary) hypertension
CPT/HCPCS: 76536; 93975

== ENCOUNTER → 2023-03-25 | Outpatient (CLI) | payer OTHER ==
--- NOTE | 2023-03-26 07:16 | US ---
EXAMINATION TYPE: US pelvis complete transvag DATE OF EXAM: 03/25/2023 COMPARISON: NONE CLINICAL INDICATION: Female, 37 years old with history of N93.9 ABNORMAL UTERINE AND VAGINAL BLEEDING , UNSPE; Heavy menses; ; patient denies any other signs or symptoms TECHNIQUE: . Transabdominal sonographic images of the pelvis were acquired. Transvaginal sonographi c images were medically necessary to better assess the following anatomy: Date of LMP: Unknown EXAM MEASUREMENTS: Uterus: 9.4 x 5.0 x 6.4 cm Endometrial Stripe: 1.1 cm Right Ovary: Not able to visualize Left Ovary: Not able to visualize 1. Uterus: Anteverted wnl 2. Endometrium: thickened 3. Right Ovary: Obscured by overlying bowel gas 4. Left Ovary: Obscured by overlying bowel gas 5. Bilateral Adnexa: wnl 6. Posterior cul-de-sac: wnl IMPRESSION: 1. Endometrial stripe measuring 1.1 cm. Correlate with the menstrual cycle stage.
== END | disposition home or self-care (01) ==
LOC: RADUSWWP 16:56
PROVIDERS: ATTEND Obstetrics & Gynecology
DX: N93.9 Abnormal uterine and vaginal bleeding, unspecified (principal)
CPT/HCPCS: 76830; 76856

== ENCOUNTER → 2023-03-25 | Outpatient (CLI) | payer OTHER ==
--- NOTE | 2023-03-25 19:27 | CT ---
EXAMINATION TYPE: CT abdomen pelvis w con CT DLP: 1951.60 mGycm, Automated exposure control for dose reduction was used. DATE OF EXAM: 03/25/2023 7:13 PM COMPARISON: None. CLINICAL INDICATION:Female, 37 years old with history of I10 ESSENTIAL (PRIMARY) HYPERTENSION [id number]; hypertension and elevated plasma metanephrines TECHNIQUE: Axial CT of the ;CT abdomen pelvis w con;Sagittal and coronal reformats were created on a separate workstation. Contrast used:100ml mL of Isovue 300 with IV Contrast, (none if empty) Oral contrast used: with Oral Contrast (none if empty) FINDINGS: LOWER CHEST: Unremarkable ABDOMEN LIVER: Unremarkable GALLBLADDER AND BILE DUCTS: Unremarkable. PANCREAS: Unremarkable. SPLEEN: Unremarkable. ADRENAL GLANDS: The adrenal nodules are symmetric without evidence of mass. KIDNEYS AND URETERS: No evidence of hydronephrosis or renal calculus. The ureters are unremarkable. PELVIS BLADDER: Unremarkable REPRODUCTIVE: Unremarkable. ABDOMEN & PELVIS STOMACH AND BOWEL: No evidence of bowel obstruction. PERITONEUM/RETROPERITONEUM: No evidence of pneumoperitoneum or free fluid. VASCULATURE: No evidence of aortic aneurysm. MUSCULOSKELETAL: No acute osseous abnormalities LYMPH NODES: No gross evidence for lymphadenopathy. SOFT TISSUE/ABDOMINAL WALL: Unremarkable IMPRESSION: No evidence for adrenal nodule or suspicious abdominal mass. Consider further evaluation with pet/CT Gallium-68 DOTATATE scan for evaluation pheochromocytoma.
== END | disposition home or self-care (01) ==
LOC: RADCTMAIN 17:23
PROVIDERS: ATTEND Family Medicine
DX: I10 Essential (primary) hypertension (principal); R79.89 Other specified abnormal findings of blood chemistry
CPT/HCPCS: 74177; Q9967

== ENCOUNTER 2023-06-23 09:12 | Emergency (ER) | payer OTHER ==
[2023-06-23] MEDS: BENZONATATE 100 MG CAP PO STA (10:03)
--- NOTE | 2023-06-23 10:23 | ED ---
URI HPI - General Chief Complaint: Upper Respiratory Infection Stated Complaint: Cough, fever Time Seen by Provider: 06/23/23 09:39 Source: patient, RN notes reviewed Mode of arrival: ambulatory Limitations: no limitations - History of Present Illness Initial Comments: This is a 37-year-old female who presents to the emergency department for a cough and congestion. States that she was diagnosed with influenza A a week ago, however symptoms have been very difficult to control. The coughing is the most bothersome in particular. States that [id number] remedies have not been helping and this is preventing her from being able to sleep. She has occasional fevers associated with this. Denies any chest pain or shortness of breath. MD Complaint: cough - Related Data Previous Rx's Medication Instructions Recorded clindamycin HCL [Cleocin] 300 mg PO Q6HR #40 cap 09/07/17 Sulfamethox-Tmp 800-160Mg [Bactrim 1 each PO Q12HR #14 tab 12/04/18 Ds] valACYclovir HCL [Valtrex] 1,000 mg PO Q12HR #20 tab 12/04/18 Azithromycin [Zithromax Z-pack (6 0 mg PO DIRECTED #6 tab 05/05/19 tabs)] Amoxic-Pot Clav 875-125Mg 1 tab PO Q12HR #20 tablet 05/11/19 [Augmentin 875-125] Fluticasone Propionate [Flonase 1 spray EA NOSTRIL QID #1 bottle 05/11/19 Allergy Relief] predniSONE [Deltasone] 20 mg PO BID #10 tab 05/11/19 Amoxicillin/Potassium Clav 1 tab PO Q12HR #20 tab 06/11/19 [Augmentin 875-125 Tablet] clindamycin HCL [Cleocin] 300 mg PO Q6HR #40 cap 08/29/19 amLODIPine [Norvasc] 2.5 mg PO DAILY #30 tablet 10/18/22 Allergies Allergy/AdvReac Type Severity Reaction Status Date / Time Penicillins Allergy Rash/Hives Verified 06/23/23 10:04 strawberry Allergy Rash/Hives Verified 06/23/23 10:04 Review of Systems ROS Statement: Those systems with pertinent positive or pertinent negative responses have been documented in the HPI. ROS Other: All systems not noted in ROS Statement are negative. Past Medical History Past Medical History: Hypertension, Thyroid Disorder Additional Past Medical History / Comment(s): thrombocytopenia History of Any Multi-Drug Resistant Organisms: None Reported Past Surgical History: Section Additional Past Surgical History / Comment(s): c-sect x2 Past Psychological History: No Psychological Hx Reported Smoking Status: Current every day smoker Past Alcohol Use History: None Reported Past Drug Use History: Marijuana General Exam Limitations: no limitations General appearance: alert, in no apparent distress Head exam: Present: atraumatic, normocephalic, normal inspection Respiratory exam: Present: normal lung sounds bilaterally. Absent: respiratory distress, wheezes, rales, rhonchi, stridor Cardiovascular Exam: Present: regular rate, normal rhythm, normal heart sounds. Absent: systolic murmur, diastolic murmur, rubs, gallop, clicks Neurological exam: Present: alert, oriented X3, CN II-XII intact Psychiatric exam: Present: normal affect, normal mood Skin exam: Present: warm, dry, intact, normal color. Absent: rash Course Vital Signs 06/23/23 06/23/23 06/23/23 10:02 10:11 10:47 Temperature 98.3 F 98.1 F Pulse Rate 74 Respiratory 18 18 Rate Blood Pressure 160/84 O2 Sat by Pulse 94 L Oximetry 06/23/23 11:24 Temperature 98.4 F Pulse Rate 82 Respiratory 18 Rate Blood Pressure 136/86 O2 Sat by Pulse 97 Oximetry Medical Decision Making - Medical Decision Making This is a 37 year old female who presents to the emergency department for coughing and congestion. Was pt. sent in by a medical professional or institution? @ -No Did you speak to anyone other than the patient for history? @ -No Did you review nursing and triage notes? @ -Yes, and I agree, it is accurate with regards to the patient's symptoms. Were old charts reviewed? @ -No Differential Diagnosis? @ -Differential Cough: Influenza, Covid, RSV, croup, allergic rhinitis, GERD, pneumonia, bronchitis, COPD, viral pharyngitis, streptococcal pharyngitis, this is not meant to be an all-inclusive list. EKG interpreted by me (3pts min.)? @ -Not obtained X-rays interpreted by me (1pt min.)? @ -Chest x-ray obtained, my interpretation identifies no localized consolidations or infiltrates. CT interpreted by me (1pt min.)? @ -Not obtained U/S interpreted by me (1pt. min.)? @ -Not obtained What testing was considered but not performed? (CT, X-rays, U/S, labs)? Why? @ -None What meds were considered but not given? Why? @ -None Did you discuss the management of the patient with other professionals? @ -No Did you reconcile home meds? @ -No Was smoking cessation discussed for >3mins.? @ -I discussed smoking cessation for greater than 3 minutes. The risk of smoking were discussed with the patient including but not limited to risks of cancer, stroke, coronary artery disease and COPD. Also discussed with patient were multiple methods of quitting smoking. Lastly we discussed the financial cost of smoking. Was critical care preformed (if so, how long)? @ -No Were there social determinants of health that impacted care today? How? (Homelessness, low income, unemployed, alcoholism, drug addiction, transportation, low edu. Level, literacy, decrease access to med. care, [facility], rehab)? @ -No Was there de-escalation of care discussed even if they declined? (Discuss DNR or withdrawal of care, Hospice)? @ -No What co-morbidities impacted this encounter? (DM, HTN, Smoking, COPD, CAD, Cancer, CVA, Hep., AIDS, mental health diagnosis, sleep apnea, morbid obesity)? @ -Smoking Was patient admitted / discharged? @ -Discharged. Chest x-ray demonstrates no acute process. Tessalon perles administered in the emergency department without significant relief in symptoms. Advised continuing with over the counter remedies as needed for additional symptomatic management and alternating with Ibuprofen and Tylenol as needed for any additional fevers. Patient discharged home in stable condition. Undiagnosed new problem with uncertain prognosis? @ -None Drug Therapy requiring intensive monitoring for toxicity (Heparin, Nitro, Insulin, Cardizem)? @ -None Were any procedures done? @ -None Diagnosis/symptom? @ -Influenza, Cough Acute, or Chronic, or Acute on Chronic? @ -Acute Uncomplicated (without systemic symptoms) or Complicated (systemic symptoms)? @ -Uncomplicated Side effects of treatment? @ -None Exacerbation, Progression, or Severe Exacerbation] @ -Not applicable Poses a threat to life or bodily function? @ -No Return precautions reviewed in depth, the patient is instructed to return to the emergency department with any new, worsening, or concerning symptoms. Patient verbalized understanding. This case was discussed in detail with the attending ED physician, Dr. Morales. Presentation, findings, and treatment plan discussed in detail as well. - Radiology Data Radiology results: report reviewed, image reviewed Disposition Clinical Impression: Cough, Influenza A, Nicotine dependence Disposition: HOME SELF-CARE Instructions (If sedation given, give patient instructions): Influenza (ED) Additional Instructions: Return to the emergency department with any new, worsening, or concerning symptoms. Alternate with ibuprofen and Tylenol as needed for any additional fevers. Follow up with your primary care provider in 1-2 days. Is patient prescribed a controlled substance at d/c from ED?: No Referrals: Angela Ferris MD [Primary Care Provider] - 1-2 days Time of Disposition: 11:10
--- NOTE | 2023-06-23 10:28 | XR ---
EXAMINATION TYPE: XR chest 2V DATE OF EXAM: 06/23/2023 9:52 AM CLINICAL INDICATION:Female, 37 years old with history of Cough; COMPARISON: Chest radiographs from 07/03/2014 TECHNIQUE: XR chest 2V Frontal and lateral views of the chest. FINDINGS: Lungs/Pleura: There is no evidence of pleural effusion, focal consolidation, or pneumothorax. Pulmonary vascularity: Unremarkable. Heart/mediastinum: Cardiomediastinal silhouette is unremarkable. Musculoskeletal: No acute osseous pathology. Other findings: None IMPRESSION: No acute cardiopulmonary disease/process.
[2023-06-23 10:36] VITALS: RESP 18
[2023-06-23 11:46] VITALS: BP 136/86; PULSE 82; TEMP 98.4
== END 2023-06-23 11:31 | disposition home or self-care (01) ==
LOC: EC 09:12
DX: J10.1 Influenza due to other identified influenza virus with other respiratory manifestations (principal); F17.200 Nicotine dependence, unspecified, uncomplicated; F12.90 Cannabis use, unspecified, uncomplicated; Z88.0 Allergy status to penicillin; Z88.8 Allergy status to other drugs, medicaments and biological substances
CPT/HCPCS: 71046; 99283; 99406

== ENCOUNTER → 2023-09-30 | Outpatient (CLI) | payer OTHER ==
[2023-09-30 18:26] LABS: Appearance,Urine Clear (Clear); Bilirubin,Urine Negative (Negative); Blood,Urine Large (Negative); Color,Urine Yellow (Yellow); Ketones,Urine Negative (Negative); Nitrite,Urine Negative (Negative); Specific Gravity,Urine 1.018 (1.001-1.030)
[2023-09-30 18:33] LABS: Bacteria,Urine 1+ (None Seen)
[2023-09-30 19:23] LABS: % Iron Saturation 18.15 (12.00-45.00); Albumin 4.3 g/dL (3.8-4.9); BUN/Creat Ratio 10.78 Ratio (12.00-20.00); Blood Urea Nitrogen 9.7 mg/dL (9.0-27.0); Calcium 8.7 mg/dL (8.7-10.3); Carbon Dioxide 23.1 mmol/L (21.6-31.8); Chloride 105 mmol/L (96-109); Ferritin 64.1 ng/mL (10.0-291.0); Glucose 119 mg/dL (70-110); Iron 61 UG/DL (50-170); Phosphorus 3.4 mg/dL (2.4-5.1); Potassium 4.1 mmol/L (3.5-5.5); Sodium 141 mmol/L (135-145); Total Iron Binding Capacity 336 UG/DL (228-460); Uric Acid 5.4 mg/dL (2.9-7.7)
[2023-09-30 19:46] LABS: Basophils # (A) 0.05 X 10*3/uL (0.00-0.10); Basophils % (A) 0.5 %; Eosinophils # (A) 0.49 X 10*3/uL (0.04-0.35); Eosinophils % (A) 4.6 %; HCT 45.2 % (37.2-46.3); HGB 15.1 g/dL (12.0-15.0); Immature Platelet Fraction 8.7 % (1.1-6.1); Lymphocytes # (A) 2.49 X 10*3/uL (0.90-5.00); Lymphocytes % (A) 23.6 %; MCH 30.9 pg (27.0-32.0); MCHC 33.4 g/dL (32.0-37.0); MCV 92.4 FL (80.0-97.0); Mean Platelet Volume 12.9 FL (9.5-12.2); Monocytes % (A) 4.7 %; NRBC Per 100 WBC 0 X 10*3/uL (0.00-0.01); Neutrophils # (A) 6.99 X 10*3/uL (1.80-7.70); Neutrophils % (A) 66.2 %; Platelet Count 79 X 10*3/uL (140-440); RBC 4.89 X 10*6/uL (4.10-5.20); RBC Morphology Normal (Normal); RDW 13.2 % (11.5-14.5); WBC 10.56 X 10*3/uL (4.50-10.00)
== END | disposition home or self-care (01) ==
LOC: LABWHC1 14:58
PROVIDERS: ATTEND Internal Medicine Nephrology
DX: I10 Essential (primary) hypertension (principal)
CPT/HCPCS: 36415; 80048; 81001; 82040; 82043; 82306; 82570; 82728; 83540; 83550; 83735; 83970; 84100; 84550; 85025; 86334; 86335

== ENCOUNTER 2024-08-09 09:43 | Emergency (ER) | payer OTHER ==
--- NOTE | 2024-08-09 10:51 | XR ---
EXAMINATION TYPE: XR KUB DATE OF EXAM: 08/09/2024 10:35 AM COMPARISON: None. CLINICAL INDICATION: Female, 38 years old with history of abdominal pain, TECHNIQUE: Single view of the abdomen. FINDINGS: Small bowel demonstrates no evidence for dilatation or air fluid levels. Gas and fecal material is seen in non-distended colon. No convincing evidence for pneumoperitoneum. No unusual calcifications. The lung bases are clear. The osseous structures are intact. IMPRESSION: 1. Overall nonobstructive bowel gas pattern. [facility], , 08/09/2024 10:48 AM
[2024-08-09 11:24] LABS: Basophils # (A) 0.02 10*3/uL (0.00-0.10); Basophils % (A) 0.2 %; Eosinophils # (A) 0.28 10*3/uL (0.04-0.35); Eosinophils % (A) 2.4 %; HCT 45.5 % (37.2-46.3); HGB 15.9 g/dL (12.0-15.0); Lymphocytes # (A) 2.85 10*3/uL (0.90-5.00); Lymphocytes % (A) 24.6 %; MCH 30.3 pg (27.0-32.0); MCHC 34.9 g/dL (32.0-37.0); MCV 86.8 fL (80.0-97.0); Mean Platelet Volume 12.7 fL (9.5-12.2); Monocytes # (A) 0.59 10*3/uL (0.20-1.00); Monocytes % (A) 5.1 %; Neutrophils # (A) 7.79 10*3/uL (1.80-7.70); Neutrophils % (A) 67.4 %; Platelet Count 100 10*3/uL (140-440); RBC 5.24 10*6/uL (4.10-5.20); RDW 12.7 % (11.5-14.5); WBC 11.57 10*3/uL (4.50-10.00)
[2024-08-09 11:36] LABS: ALT 15 U/L (4-34); AST 19 U/L (14-36); African American GFR (CKD) >90 (>60 ml/min/1.73 sqM); Albumin 4.3 g/dL (3.5-5.0); Alkaline Phosphatase 77 U/L (38-126); Amylase 75 U/L (30-110); Anion Gap 11 mmol/L; Blood Urea Nitrogen 9 mg/dL (7-17); Calcium 9.1 mg/dL (8.4-10.2); Carbon Dioxide 26 mmol/L (22-30); Chloride 102 mmol/L (98-107); Glucose 101 mg/dL (74-99); Lipase 984 U/L (23-300); Non-African American GFR(CKD) >90 (>60 ml/min/1.73 sqM); Potassium 3.3 mmol/L (3.5-5.1); Sodium 139 mmol/L (137-145); Total Bilirubin 0.5 mg/dL (0.2-1.3); Total Protein 6.9 g/dL (6.3-8.2)
--- NOTE | 2024-08-09 11:38 | ED ---
Abdominal Pain HPI - General Chief Complaint: Abdominal Pain Stated Complaint: abd pain, NVD Time Seen by Provider: 08/09/24 10:00 Source: patient, RN notes reviewed Mode of arrival: ambulatory Limitations: no limitations - History of Present Illness Initial Comments: This is a 38-year-old female with history of thyroid disorder and thrombocyt openia presenting for abdominal pain x 2 weeks. Patient endorses associated nausea/vomiting/diarrhea, pain when eating and decreased appetite. States food occasionally feels "stuck". Endorses thick brown vomit with strong odor. Endorses starting Wegovy about 1 month ago, prior to start of symptoms. Denies fever, chills, chest pain, dyspnea, hematemesis, hematochezia, melena. MD Complaint: abdominal pain Onset/Timin -: week(s) Location: epigastric Radiation: none Migration to: no migration - Related Data Home Medications Medication Instructions Recorded Confirmed Escitalopram [Lexapro] 20 mg PO DAILY 08/09/24 08/09/24 Levothyroxine Sodium [Synthroid] 88 mcg PO DAILY 08/09/24 08/09/24 Semaglutide [Wegovy] 1 mg SQ FR 08/09/24 08/09/24 amLODIPine [Norvasc] 5 mg PO DAILY 08/09/24 08/09/24 hydroCHLOROthiazide 12.5 mg PO DAILY 08/09/24 08/09/24 Allergies Allergy/AdvReac Type Severity Reaction Status Date / Time Penicillins Allergy Anaphylaxis Verified 08/09/24 15:49 /Rash strawberry Allergy Rash/Hives Verified 08/09/24 15:49 Review of Systems ROS Statement: Those systems with pertinent positive or pertinent negative responses have been documented in the HPI. ROS Other: All systems not noted in ROS Statement are negative. Past Medical History Past Medical History: Hypertension, Thyroid Disorder Additional Past Medical History / Comment(s): thrombocytopenia History of Any Multi-Drug Resistant Organisms: None Reported Past Surgical History: Section Additional Past Surgical History / Comment(s): c-sect x2 Past Psychological History: No Psychological Hx Reported Smoking Status: Current every day smoker Past Alcohol Use History: None Reported Past Drug Use History: Marijuana General Exam Limitations: no limitations General appearance: alert, in no apparent distress Head exam: Present: atraumatic, normocephalic, normal inspection Eye exam: Present: normal appearance, PERRL, EOMI. Absent: scleral icterus, conjunctival injection, periorbital swelling ENT exam: Present: normal exam, mucous membranes moist Neck exam: Present: normal inspection. Absent: tenderness, meningismus, lymphadenopathy Respiratory exam: Present: normal lung sounds bilaterally. Absent: respiratory distress, wheezes, rales, rhonchi, stridor Cardiovascular Exam: Present: regular rate, normal rhythm, normal heart sounds. Absent: systolic murmur, diastolic murmur, rubs, gallop, clicks GI/Abdominal exam: Present: soft, tenderness (Positive epigastric TTP. Negative Solo sign), normal bowel sounds. Absent: distended, guarding, rebound, rigid Extremities exam: Present: normal inspection, full ROM, normal capillary refill. Absent: tenderness, pedal edema, joint swelling, calf tenderness Back exam: Present: normal inspection Neurological exam: Present: alert, oriented X3, CN II-XII intact Psychiatric exam: Present: normal affect, normal mood Skin exam: Present: warm, dry, intact, normal color. Absent: rash Course Vital Signs 08/09/24 08/09/24 08/09/24 10:06 11:20 12:48 Temperature 98.3 F 98.2 F Pulse Rate 75 70 65 Respiratory 18 18 16 Rate Blood Pressure 128/83 119/86 119/81 O2 Sat by Pulse 100 100 99 Oximetry 08/09/24 14:24 Temperature Pulse Rate 78 Respiratory 18 Rate Blood Pressure 111/82 O2 Sat by Pulse 98 Oximetry Medical Decision Making - Medical Decision Making Was pt. sent in by a medical professional or institution (, PA, SHORT STORY WRITER, urgent care, hospital, or long-term...) When possible be specific @ -No Did you speak to anyone other than the patient for history (EMS, parent, family, police, friend...)? What history was obtained from this source @ -No Did you review nursing and triage notes (agree or disagree)? Why? @ -I reviewed and agree with nursing and triage notes Were old charts reviewed (outside hosp., previous admission, EMS record, old EKG, old radiological studies, urgent care reports/EKG's, long-term records)? Report findings @ -No old charts were reviewed Differential Diagnosis (chest pain, altered mental status, abdominal pain women, abdominal pain men, vaginal bleeding, weakness, fever, dyspnea, syncope, headache, dizziness, GI bleed, back pain, seizure, CVA, palpatations, mental health, musculoskeletal)? @ -Differential Abdominal Pain Women: Appendicitis, Cholecystitis, diverticulosis, ischemic bowel, pancreatitis, hepatitis, UTI, gastroenteritis, AAA, incarcerated hernia, bowel obstruction, constipation, inflammatory bowel, hepatitis, peptic ulcer disease, splenic infarction, perforated viscus, vulvitis, ovarian torsion, PID, kidney stone, placenta abruption, this is not meant to be an all-inclusive list EKG interpreted by me (3pts min.). @ -Not done X-rays interpreted by me (1pt min.). @ - KUB shows nonobstructive bowel gas pattern. CT interpreted by me (1pt min.). @ -None done U/S interpreted by me (1pt. min.). @ -Gallbladder ultrasound shows hepatic steatosis with visualized pancreas and gallbladder appearing WNL. What testing was considered but not performed or refused? (CT, X-rays, U/S, labs )? Why? @ -None What meds were considered but not given or refused? Why? @ -None Did you discuss the management of the patient with other professionals (professionals i.e. , PA, SHORT STORY WRITER, lab, RT, psych nurse, psychotherapist social worker, manager management, teacher, freedom of information officer, casey saw operator)? Give summary @ -Spoke to Jammie Bateman from [facility] who advised patient stay for ongoing treatment of pancreatitis with additional IV fluids and to monitor downward trend of lipase. Was smoking cessation discussed for >3mins.? @ -No Was critical care preformed (if so, how long)? @ -No Were there social determinants of health that impacted care today? How? (Homelessness, low income, unemployed, alcoholism, drug addiction, transportation, low edu. Level, literacy, decrease access to med. care, retirement, rehab)? @ -No Was there de-escalation of care discussed even if they declined (Discuss DNR or withdrawal of care, Hospice)? DNR status @ -No What co-morbidities impacted this encounter? (DM, HTN, Smoking, COPD, CAD, Cancer, CVA, ARF, Chemo, Hep., AIDS, mental health diagnosis, sleep apnea, morbid obesity)? @ -None Was patient admitted / discharged? Hospital course, mention meds given and route, prescriptions, significant lab abnormalities, going to OR and other pertinent info. @ -Lab work significant for leukocytosis 11.57 and thrombocytopenia 100, which is within normal limits for patient. Also of note hypokalemia 3.3 and elevated lipase 984. KUB shows nonobstructive bowel gas pattern. Gallbladder ultrasound shows hepatic steatosis with visualized pancreas and gallbladder appearing WNL. Patient initially provided IV normal saline, Pepcid, Protonix, Zofran and p.o. viscous lidocaine and potassium chloride. Patient provided additional IV normal saline and additional Zofran for ongoing nausea. Spoke to Jammie Bateman from [facility] who advised patient stay for ongoing treatment of pancreatitis with additional IV fluids and to monitor downward trend of lipase. Patient states she is unable to stay due to responsibility of childcare but will continue oral rehydration. Advised to avoid fatty food intake until further workup can be performed with PCP in the next 24-48 hours. Advised patient to return to ER if experiencing worsening pain and/or symptoms. Discussed patient with Dr. Salas. Undiagnosed new problem with uncertain prognosis? @ -Pancreatitis Drug Therapy requiring intensive monitoring for toxicity (Heparin, Nitro, Insulin, Cardizem)? @ -No Were any procedures done? @ -No Diagnosis/symptom? @ -Pancreatitis Acute, or Chronic, or Acute on Chronic? @ -Acute Uncomplicated (without systemic symptoms) or Complicated (systemic symptoms)? @ -Complicated Side effects of treatment? @ -No Exacerbation, Progression, or Severe Exacerbation? @ -No Poses a threat to life or bodily function? How? (Chest pain, USA, IA, pneumonia, PE, COPD, DKA, ARF, appy, cholecystitis, CVA, Diverticulitis, Homicidal, Suicidal, threat to staff... and all critical care pts) @ -Pancreatitis - Lab Data Result diagrams: 08/09/24 11:02 08/09/24 11:02 Lab Results 08/09/24 08/09/24 Range/Units 11:02 11:02 WBC 11.57 H (4.50-10.00) 10*3/uL RBC 5.24 H (4.10-5.20) 10*6/uL Hgb 15.9 H (12.0-15.0) g/dL Hct 45.5 (37.2-46.3) % MCV 86.8 (80.0-97.0) fL MCH 30.3 (27.0-32.0) pg MCHC 34.9 (32.0-37.0) g/dL Plt Count 100 L (140-440) 10*3/uL MPV 12.7 H (9.5-12.2) fL Immature Gran % (Auto) 0.3 % Neutrophils % 67.4 % Lymphocytes % 24.6 % Monocytes % 5.1 % Eosinophils % 2.4 % Basophils % 0.2 % Immature Gran # 0.04 (0.00-0.04) 10*3/uL Neutrophils # 7.79 H (1.80-7.70) 10*3/uL Lymphocytes # 2.85 (0.90-5.00) 10*3/uL Monocytes # 0.59 (0.20-1.00) 10*3/uL Eosinophils # 0.28 (0.04-0.35) 10*3/uL Basophils # 0.02 (0.00-0.10) 10*3/uL Sodium 139 (137-145) mmol/L Potassium 3.3 L (3.5-5.1) mmol/L Chloride 102 (98-107) mmol/L Carbon Dioxide 26 (22-30) mmol/L Anion Gap 11 mmol/L BUN 9 (7-17) mg/dL Creatinine 0.67 (0.52-1.04) mg/dL Est GFR (CKD-EPI)AfAm >90 (>60 ml/min/1.73 sqM) Est GFR (CKD-EPI)NonAf >90 (>60 ml/min/1.73 sqM) Glucose 101 H (74-99) mg/dL Calcium 9.1 (8.4-10.2) mg/dL Total Bilirubin 0.5 (0.2-1.3) mg/dL AST 19 (14-36) U/L ALT 15 (4-34) U/L Alkaline Phosphatase 77 (38-126) U/L Total Protein 6.9 (6.3-8.2) g/dL Albumin 4.3 (3.5-5.0) g/dL Amylase 75 (30-110) U/L Lipase 984 H (23-300) U/L Disposition Clinical Impression: Pancreatitis Disposition: HOME SELF-CARE Condition: Good Instructions (If sedation given, give patient instructions): Pancreatitis (ED) Additional Instructions: Follow-up with PCP in the next 24-48 hours. Avoid fatty food intake. Is patient prescribed a controlled substance at d/c from ED?: No Referrals: Angela Ferris MD [Primary Care Provider] - 1-2 days Time of Disposition: 17:38
[2024-08-09] MEDS: POTASSIUM CHLORIDE ER 20 MEQ TAB.ER PO STA (11:45)
[2024-08-09] MEDS: LIDOCAINE VISCOUS 2% 15 ML CUP PO ONE (11:46)
[2024-08-09] MEDS: FAMOTIDINE 20 MG/2 ML VIAL IV STA (11:47)
[2024-08-09] MEDS: ONDANSETRON 4 MG/2 ML VIAL IVP STA ×2 (11:47→14:19)
[2024-08-09] MEDS: PANTOPRAZOLE 40 MG/10 ML VIAL IVP STA (11:47)
[2024-08-09] MEDS: SODIUM CHLORIDE 0.9% 1,000 ML IV STA ×2 (11:48→14:19)
[2024-08-09 12:49] VITALS: TEMP 98.2
[2024-08-09 14:25] VITALS: BP 111/82; PULSE 78; RESP 18
--- NOTE | 2024-08-09 17:06 | US ---
EXAMINATION TYPE: US gallbladder DATE OF EXAM: 08/09/2024 COMPARISON: CT 2022 CLINICAL INDICATION: Female, 38 years old with history of Epigastric pain, elevated lipase; TECHNIQUE: Grayscale and color Doppler imaging of the right upper quadrant was performed. FINDINGS: EXAM MEASUREMENTS: Liver Length: 17.8 cm Gallbladder Wall: 0.2 cm CBD: 0.4 cm Right Kidney: 10.9 x 4.3 x 4.6 cm Pancreas: visualized portions wnl, limited by overlying midline bowel gas Liver: measures in upper limits of normal, attenuating, increased echogenicity Gallbladder: wnl Evidence for sonographic Solo's sign: no CBD: visualized portions wnl, limited by overlying bowel gas Right Kidney: wnl IMPRESSION: Hepatic steatosis. Otherwise unremarkable study. [facility], , 08/09/2024 5:03 PM
== END 2024-08-09 18:04 | disposition home or self-care (01) ==
LOC: EC 09:43
DX: K85.90 Acute pancreatitis without necrosis or infection, unspecified (principal); F17.200 Nicotine dependence, unspecified, uncomplicated; Z88.0 Allergy status to penicillin; Z91.018 Allergy to other foods
CPT/HCPCS: 36415; 80053; 82150; 83690; 85025; 74018; 76705; 99284; 96374; 96375 ×2; 96376; 96361 ×2; J2405; J2470; J1308

== ENCOUNTER 2024-08-17 22:26 | Emergency (ER) | payer OTHER ==
[2024-08-17 22:34] VITALS: TEMP 98
--- NOTE | 2024-08-17 23:31 | US ---
EXAMINATION TYPE: US abdomen limited DATE OF EXAM: 08/17/2024 COMPARISON: 08/09/24 CLINICAL INDICATION: Female, 38 years old with history of epigastric pain; epigastric pain TECHNIQUE: Grayscale and color Doppler imaging of the right upper quadrant was performed. FINDINGS: EXAM MEASUREMENTS: Liver Length: 15.8 cm Gallbladder Wall: 0.22 cm CBD: 0.18 cm Right Kidney: 10.5 x 5.7 x 4.2 cm FIRE SYSTEMS INSPECTOR NOTES: Pancreas: parts seen appear heterogeneous Liver: heterogeneous and increased attenuation Gallbladder: wnl Evidence for sonographic Solo's sign: No CBD: wnl Right Kidney: wnl IMPRESSION: 1. No suspicious acute changes ultrasound right upper quadrant [facility], Workstation: [facility], 08/17/2024 11:29 PM
[2024-08-17] MEDS: LACTATED RINGERS 1,000 ML IV SCH (23:41)
[2024-08-17] MEDS: KETOROLAC 15 MG/ML 1 ML VIAL IVP STA (23:44)
[2024-08-17] MEDS: ONDANSETRON 4 MG/2 ML VIAL IVP STA (23:44)
[2024-08-18 00:10] LABS: Appearance,Urine Cloudy (Clear); Bilirubin,Urine Negative (Negative); Blood,Urine Small (Negative); Color,Urine Yellow; Glucose,Urine (UA) Negative (Negative); Ketones,Urine Negative (Negative); Leukocyte Esterase,Urine Negative (Negative); Mucus,Urine Rare /hpf; Nitrite,Urine Negative (Negative); PH, Urine 5.5 (5.0-8.0); Protein,Urine Negative (Negative); RBC,Urine 1 /hpf (0-5); Specific Gravity,Urine 1.023 (1.001-1.035); Squamous Epithelial Cell,Urine 8 /hpf (0-4); Urobilinogen,Urine <2.0 mg/dL (<2.0); WBC,Urine 2 /hpf (0-5)
[2024-08-18 00:22] LABS: ALT 16 U/L (4-34); AST 23 U/L (14-36); African American GFR (CKD) >90 (>60 ml/min/1.73 sqM); Albumin 3.9 g/dL (3.5-5.0); Alkaline Phosphatase 72 U/L (38-126); Amylase 33 U/L (30-110); Anion Gap 13 mmol/L; Blood Urea Nitrogen 11 mg/dL (7-17); Calcium 8.7 mg/dL (8.4-10.2); Carbon Dioxide 22 mmol/L (22-30); Chloride 105 mmol/L (98-107); Glucose 94 mg/dL (74-99); Lipase 103 U/L (23-300); Non-African American GFR(CKD) >90 (>60 ml/min/1.73 sqM); Potassium 3.2 mmol/L (3.5-5.1); Sodium 140 mmol/L (137-145); Total Bilirubin 0.5 mg/dL (0.2-1.3); Total Protein 6.3 g/dL (6.3-8.2)
[2024-08-18 01:17] LABS: Basophils # (A) 0.02 10*3/uL (0.00-0.10); Basophils % (A) 0.2 %; Eosinophils # (A) 0.65 10*3/uL (0.04-0.35); Eosinophils % (A) 6.5 %; HGB 14.4 g/dL (12.0-15.0); Lymphocytes # (A) 3.08 10*3/uL (0.90-5.00); MCH 30.5 pg (27.0-32.0); MCHC 34.3 g/dL (32.0-37.0); Monocytes # (A) 0.43 10*3/uL (0.20-1.00); Monocytes % (A) 4.3 %; Neutrophils # (A) 5.73 10*3/uL (1.80-7.70); Neutrophils % (A) 57.8 %; RBC 4.72 10*6/uL (4.10-5.20); RDW 12.8 % (11.5-14.5); WBC 9.93 10*3/uL (4.50-10.00)
[2024-08-18] MEDS: HYDROmorphone 1 MG/ML 1 ML SYRINGE IVP STA (01:44)
--- NOTE | 2024-08-18 01:46 | CT ---
EXAM: CT Abdomen and Pelvis With Intravenous Contrast CLINICAL HISTORY: Pain, N/V/D TECHNIQUE: Axial computed tomography images of the abdomen and pelvis with intravenous contrast. CTDI is 33 mGy and DLP is 1486.6 mGy-cm. This CT exam was performed using one or more of the following dose reduction techniques: automated exposure control, adjustment of the mA and/or kV according to patient size, and/or use of iterative reconstruction technique. COMPARISON: CT abdomen and pelvis with contrast dated 03/25/2023 FINDINGS: Lung bases: Unremarkable. No mass. No consolidation. ABDOMEN: Liver: Unremarkable. No mass. Gallbladder and bile ducts: Unremarkable. No calcified stones. No ductal dilation. Pancreas: Unremarkable. No mass. No ductal dilation. Spleen: Unremarkable. No splenomegaly. Adrenals: Unremarkable. No mass. Kidneys and ureters: Unremarkable. No solid mass. No hydronephrosis. Delayed phase imaging demonstrates normal excreted contrast in the renal collecting systems. Stomach and bowel: The stomach is moderately distended with retained oral contents and fluid. No gastric mucosal thickening noted. No evidence for focal high-grade bowel obstruction. Questionable subtle colonic mucosal prominence is nonspecific with partial distention. However, there appears to be slightly prominent fluid throughout the colon. PELVIS: Appendix: The appendix is not clearly delineated. No secondary findings to suggest acute appendicitis. Bladder: The bladder is mildly distended with bowel bladder wall thickening or bladder stones. Reproductive: Uterus is unremarkable. Surgical clips noted involving the region of the fallopian tubes. No adnexal mass. ABDOMEN and PELVIS: Intraperitoneal space: Unremarkable. No free air. No significant fluid collection. Bones/joints: No acute fracture. No dislocation. Soft tissues: No significant overlying acute soft tissue abnormality. Similar skin thickening involving the anterior small pannus. No hernia. Vasculature: Similar atherosclerotic calcification of the infrarenal abdominal aorta. No abdominal aortic aneurysm. Lymph nodes: Nonspecific periaortic subcentimeter lymph nodes, similar to minimally increased in size. IMPRESSION: No evidence for focal high-grade bowel obstruction. Questionable subtle colonic mucosal prominence is nonspecific with partial distention. However, there appears to be slightly prominent fluid throughout the colon. This raises a suspicion for potential colitis and diarrheal disease. Please correlate clinically. No free intraperitoneal fluid or pneumoperitoneum.
[2024-08-18] MEDS: MORPHINE SULFATE 2 MG/ML SYRINGE IVP STA (01:57)
[2024-08-18 02:00] VITALS: RESP 16
--- NOTE | 2024-08-18 02:45 | ED ---
General Adult HPI - General Chief complaint: Nausea/Vomiting/Diarrhea Stated complaint: NVD Time Seen by Provider: 08/17/24 22:36 Source: patient Mode of arrival: ambulatory Limitations: no limitations - History of Present Illness Initial comments: 38-year-old female presenting with chief complaint of nausea vomiting and diarrhea. Patient was seen here on 08/09 with similar symptoms. She was determined to have pancreatitis. She was offered admission but states that she could not stay. She went home and tried to manage her symptoms on her own but she has had continued nausea vomiting and diarrhea. States that at 1 point she did see some blood streaks in her vomit. She admits to epigastric pain. Denies chest pain or difficulty breathing. States that she feels very sore. No urinary symptoms. No hematochezia or melena. No fever. - Related Data Home Medications Medication Instructions Recorded Confirmed Escitalopram [Lexapro] 20 mg PO DAILY 08/09/24 08/09/24 Levothyroxine Sodium [Synthroid] 88 mcg PO DAILY 08/09/24 08/09/24 Semaglutide [Wegovy] 1 mg SQ FR 08/09/24 08/09/24 amLODIPine [Norvasc] 5 mg PO DAILY 08/09/24 08/09/24 hydroCHLOROthiazide 12.5 mg PO DAILY 08/09/24 08/09/24 Previous Rx's Medication Instructions Recorded Ciprofloxacin HCl [Cipro] 500 mg PO Q12HR 7 Days #14 tab 08/18/24 Ondansetron Odt [Zofran Odt] 4 mg PO Q8HR PRN #20 tab 08/18/24 metroNIDAZOLE [Flagyl] 500 mg PO BID 7 Days #14 tab 08/18/24 Allergies Allergy/AdvReac Type Severity Reaction Status Date / Time Penicillins Allergy Anaphylaxis Verified 08/17/24 22:33 /Rash strawberry Allergy Rash/Hives Verified 08/17/24 22:33 Review of Systems ROS Statement: Those systems with pertinent positive or pertinent negative responses have been documented in the HPI. ROS Other: All systems not noted in ROS Statement are negative. Past Medical History Past Medical History: Hypertension, Thyroid Disorder Additional Past Medical History / Comment(s): thrombocytopenia History of Any Multi-Drug Resistant Organisms: None Reported Past Surgical History: Section Additional Past Surgical History / Comment(s): c-sect x2 Past Psychological History: No Psychological Hx Reported Smoking Status: Current every day smoker Past Alcohol Use History: None Reported Past Drug Use History: Marijuana General Exam Limitations: no limitations General appearance: alert, in no apparent distress Head exam: Present: atraumatic, normocephalic, normal inspection Eye exam: Present: normal appearance, EOMI Neck exam: Present: normal inspection. Absent: meningismus Respiratory exam: Present: normal lung sounds bilaterally. Absent: respiratory distress, wheezes, rales, rhonchi, stridor Cardiovascular Exam: Present: regular rate, normal rhythm, normal heart sounds. Absent: systolic murmur, diastolic murmur, rubs, gallop, clicks GI/Abdominal exam: Present: soft, tenderness. Absent: distended, guarding, rebound, rigid Neurological exam: Present: alert, oriented X3 Psychiatric exam: Present: normal affect, normal mood Skin exam: Present: warm, dry, normal color Course Vital Signs 08/17/24 08/18/24 22:32 01:59 Temperature 98 F Pulse Rate 79 74 Respiratory 18 16 Rate Blood Pressure 123/81 118/81 O2 Sat by Pulse 98 98 Oximetry Medical Decision Making - Medical Decision Making Was pt. sent in by a medical professional or institution (, PA, SCIENTIST/ENGINEER, urgent care, hospital, or jail...) When possible be specific @ -No Did you speak to anyone other than the patient for history (EMS, parent, family, police, friend...)? What history was obtained from this source @ -No Did you review nursing and triage notes (agree or disagree)? Why? @ -I reviewed and agree with nursing and triage notes Were old charts reviewed (outside hosp., previous admission, EMS record, old EKG, old radiological studies, urgent care reports/EKG's, jail records)? Report findings @ -Reviewed most recent ER visit Differential Diagnosis (chest pain, altered mental status, abdominal pain women, abdominal pain men, vaginal bleeding, weakness, fever, dyspnea, syncope, headache, dizziness, GI bleed, back pain, seizure, CVA, palpatations, mental health, musculoskeletal)? @ -[facility] Differential Abdominal Pain Women: Appendicitis, Cholecystitis, diverticulosis, ischemic bowel, pancreatitis, hepatitis, UTI, gastroenteritis, AAA, incarcerated hernia, bowel obstruction, constipation, inflammatory bowel, hepatitis, peptic ulcer disease, splenic infarction, perforated viscus, vulvitis, ovarian torsion, PID, kidney stone, placenta abruption... This is not meant to be an all-inclusive list EKG interpreted by me (3pts min.). @ -EKG shows sinus rhythm ventricular rate 67. MD interval 170. QRS 94. QT 447. QTc 462 X-rays interpreted by me (1pt min.). @ -None done CT interpreted by me (1pt min.). @ -CT shows no evidence for focal high-grade bowel obstruction. Questionable subtle colonic mucosal prominence is nonspecific with partial distention. However there appears to be slightly prominent fluid throughout the colon. This raises a suspicion for potential colitis and diarrheal disease. No free i ntraperitoneal fluid or pneumoperitoneum U/S interpreted by me (1pt. min.). @ -Ultrasound shows no suspicious acute changes in the right upper quadrant What testing was considered but not performed or refused? (CT, X-rays, U/S, labs)? Why? @ -None What meds were considered but not given or refused? Why? @ -None Did you discuss the management of the patient with other professionals (professionals i.e. , PA, SCIENTIST/ENGINEER, lab, RT, psych nurse, social contact worker, student activities director, teacher, fundraising officer, case checker)? Give summary @ -No Was smoking cessation discussed for >3mins.? @ -No Was critical care preformed (if so, how long)? @ -No Were there social determinants of health that impacted care today? How? (Homelessness, low income, unemployed, alcoholism, drug addiction, transportation, low edu. Level, literacy, decrease access to med. care, residential, rehab)? @ -No Was there de-escalation of care discussed even if they declined (Discuss DNR or withdrawal of care, Hospice)? DNR status @ -No What co-morbidities impacted this encounter? (DM, HTN, Smoking, COPD, CAD, Cancer, CVA, ARF, Chemo, Hep., AIDS, mental health diagnosis, sleep apnea, morbid obesity)? @ -None Was patient admitted / discharged? Hospital course, mention meds given and route, prescriptions, significant lab abnormalities, going to OR and other pertinent info. @ -38-year-old female presenting with chief complaint of nausea vomiting and diarrhea. Admits to epigastric pain. She was seen here on 08/09 was diagnosed with pancreatitis, was offered admission but states that she could not stay. She returns today because her symptoms have persisted. History and physical examination are conducted. Patient is given IV fluids pain meds and antiemetics. Lab work shows no leukocytosis or anemia. Amylase and lipase are WNL. EKG shows sinus rhythm and troponin is negative. Potassium 3.2, patient received 40 mEq of K-Dur. Urine shows no infectious process. Abdomen ultrasound is unremarkable. CT positive for possible colitis. Patient is educated on today's findings. She will be treated with metronidazole and Cipro due to penicillin allergy. Follow-up with PCP. Report back to ER with any new or worsening symptoms. Discussed return parameters and answered all questions. Patient conveyed verbal understanding and agreed to the plan. I discussed this case in detail with my attending Dr. Villalobos Undiagnosed new problem with uncertain prognosis? @ -No Drug Therapy requiring intensive monitoring for toxicity (Heparin, Nitro, Insulin, Cardizem)? @ -No Were any procedures done? @ -No Diagnosis/symptom? @ -Colitis Acute, or Chronic, or Acute on Chronic? @ -Acute Uncomplicated (without systemic symptoms) or Complicated (systemic symptoms)? @ -Uncomplicated Side effects of treatment? @ -No Exacerbation, Progression, or Severe Exacerbation? @ -No Poses a threat to life or bodily function? How? (Chest pain, [place], [place], pneumonia, PE, COPD, DKA, ARF, appy, cholecystitis, CVA, Diverticulitis, Homicidal, S uicidal, threat to staff... and all critical care pts) @ -Unlikely - Lab Data Result diagrams: 08/18/24 01:04 08/17/24 23:35 Lab Results 08/17/24 08/17/24 08/17/24 Range/Units 23:35 23:35 23:35 WBC (4.50-10.00) 10*3/uL RBC (4.10-5.20) 10*6/uL Hgb (12.0-15.0) g/dL Hct (37.2-46.3) % MCV (80.0-97.0) fL MCH (27.0-32.0) pg MCHC (32.0-37.0) g/dL MPV (9.5-12.2) fL Immature Gran % (Auto) % Immature Gran # (0.00-0.04) 10*3/uL Sodium 140 (137-145) mmol/L Potassium 3.2 L (3.5-5.1) mmol/L Chloride 105 (98-107) mmol/L Carbon Dioxide 22 (22-30) mmol/L Anion Gap 13 mmol/L BUN 11 (7-17) mg/dL Creatinine 0.57 (0.52-1.04) mg/dL Est GFR (CKD-EPI)AfAm >90 (>60 ml/min/1.73 sqM) Est GFR (CKD-EPI)NonAf >90 (>60 ml/min/1.73 sqM) Glucose 94 (74-99) mg/dL Plasma Lactic Acid Mckay (0.7-2.0) mmol/L Calcium 8.7 (8.4-10.2) mg/dL Total Bilirubin 0.5 (0.2-1.3) mg/dL AST 23 (14-36) U/L ALT 16 (4-34) U/L Alkaline Phosphatase 72 (38-126) U/L Troponin I <0.012 (0.000-0.034) ng/mL Total Protein 6.3 (6.3-8.2) g/dL Albumin 3.9 (3.5-5.0) g/dL Amylase 33 (30-110) U/L Lipase 103 (23-300) U/L Urine Color Yellow Urine Appearance Cloudy H (Clear) Urine pH 5.5 (5.0-8.0) Ur Specific [place] 1.023 (1.001-1.035) Urine Protein Negative (Negative) Urine Glucose (UA) Negative (Negative) Urine Ketones Negative (Negative) Urine Blood Small H (Negative) Urine Nitrite Negative (Negative) Urine Bilirubin Negative (Negative) Urine Urobilinogen <2.0 (<2.0) mg/dL Ur Leukocyte Esterase Negative (Negative) Urine RBC 1 (0-5) /hpf Urine WBC 2 (0-5) /hpf Ur Squamous Epith Cells 8 H (0-4) /hpf Urine Mucus Rare H (None) /hpf 08/17/24 08/18/24 Range/Units 23:35 01:04 WBC 9.93 (4.50-10.00) 10*3/uL RBC 4.72 (4.10-5.20) 10*6/uL Hgb 14.4 (12.0-15.0) g/dL Hct 42.0 (37.2-46.3) % MCV 89.0 (80.0-97.0) fL MCH 30.5 (27.0-32.0) pg MCHC 34.3 (32.0-37.0) g/dL MPV 13.0 H (9.5-12.2) fL Immature Gran % (Auto) 0.2 % Immature Gran # 0.02 (0.00-0.04) 10*3/uL Sodium (137-145) mmol/L Potassium (3.5-5.1) mmol/L Chloride (98-107) mmol/L Carbon Dioxide (22-30) mmol/L Anion Gap mmol/L BUN (7-17) mg/dL Creatinine (0.52-1.04) mg/dL Est GFR (CKD-EPI)AfAm (>60 ml/min/1.73 sqM) Est GFR (CKD-EPI)NonAf (>60 ml/min/1.73 sqM) Glucose (74-99) mg/dL Plasma Lactic Acid Mckay 0.7 (0.7-2.0) mmol/L Calcium (8.4-10.2) mg/dL Total Bilirubin (0.2-1.3) mg/dL AST (14-36) U/L ALT (4-34) U/L Alkaline Phosphatase (38-126) U/L Troponin I (0.000-0.034) ng/mL Total Protein (6.3-8.2) g/dL Albumin (3.5-5.0) g/dL Amylase (30-110) U/L Lipase (23-300) U/L Urine Color Urine Appearance (Clear) Urine pH (5.0-8.0) Ur Specific [place] (1.001-1.035) Urine Protein (Negative) Urine Glucose (UA) (Negative) Urine Ketones (Negative) Urine Blood (Negative) Urine Nitrite (Negative) Urine Bilirubin (Negative) Urine Urobilinogen (<2.0) mg/dL Ur Leukocyte Esterase (Negative) Urine RBC (0-5) /hpf Urine WBC (0-5) /hpf Ur Squamous Epith Cells (0-4) /hpf Urine Mucus (None) /hpf Disposition Clinical Impression: Colitis Disposition: HOME SELF-CARE Condition: Good Instructions (If sedation given, give patient instructions): Colitis (ED) Additional Instructions: Follow-up with PCP. Report back to ER with any new or worsening symptoms. Prescriptions: Ciprofloxacin HCl [Cipro] 500 mg PO Q12HR 7 Days #14 tab metroNIDAZOLE [Flagyl] 500 mg PO BID 7 Days #14 tab Ondansetron Odt [Zofran Odt] 4 mg PO Q8HR PRN #20 tab PRN Reason: Nausea Is patient prescribed a controlled substance at d/c from ED?: No Referrals: Angela Ferris MD [Primary Care Provider] - 1-2 days Time of Disposition: 02:45
[2024-08-18] MEDS: CIPROFLOXACIN HCL 500 MG TAB PO STA (03:09)
[2024-08-18] MEDS: metroNIDAZOLE 500 MG TAB PO STA (03:09)
[2024-08-18 03:31] LABS: Platelet Count 80 10*3/uL (140-440)
[2024-08-18] MEDS: POTASSIUM CHLORIDE ER 20 MEQ TAB.ER PO STA (03:39)
[2024-08-18 03:41] VITALS: BP 124/69; PULSE 72
== END 2024-08-18 03:41 | disposition home or self-care (01) ==
LOC: EC 22:26
DX: K52.9 Noninfective gastroenteritis and colitis, unspecified (principal); F17.200 Nicotine dependence, unspecified, uncomplicated; Z88.0 Allergy status to penicillin; Z91.018 Allergy to other foods
CPT/HCPCS: 36415 ×2; 93005; 80053; 82150; 83605; 83690; 84484; 85025; 81001; 76705; 74177; 99284; 96374; 96375 ×2; 96361 ×3; J2405; J2270; J1885; Q9967

== ENCOUNTER 2024-09-25 12:45 | Emergency (ER) | payer OTHER ==
[2024-09-25 12:51] VITALS: TEMP 98
--- NOTE | 2024-09-25 13:08 | ED ---
General Adult HPI - General Chief complaint: Back Pain/Injury Stated complaint: back pain Time Seen by Provider: 09/25/24 12:56 Source: patient, RN notes reviewed Mode of arrival: ambulatory Limitations: no limitations - History of Present Illness Initial comments: Patient is a 38-year-old female present to the emergency department with concerns with low back pain. Patient does have some chronic low back problems. Patient also has history of sciatica. Patient has been painting. Patient has had increased discomfort the last few days. Symptoms were worse when she tried to get out of bed this morning. Discomfort is mostly worse when trying to go from sitting to standing. No incontinence or retention of bowel or bladder. Patient states symptoms are a lot worse with coughing. Patient did have a coughing episode that increased her pain and her legs gave out on her. Otherwise there has been no weakness of the legs. No loss of sensation. - Related Data Home Medications Medication Instructions Recorded Confirmed Escitalopram [Lexapro] 20 mg PO DAILY 08/09/24 08/09/24 Levothyroxine Sodium [Synthroid] 88 mcg PO DAILY 08/09/24 08/09/24 Semaglutide [Wegovy] 1 mg SQ FR 08/09/24 08/09/24 amLODIPine [Norvasc] 5 mg PO DAILY 08/09/24 08/09/24 hydroCHLOROthiazide 12.5 mg PO DAILY 08/09/24 08/09/24 Previous Rx's Medication Instructions Recorded Ciprofloxacin HCl [Cipro] 500 mg PO Q12HR 7 Days #14 tab 08/18/24 Ondansetron Odt [Zofran Odt] 4 mg PO Q8HR PRN #20 tab 08/18/24 metroNIDAZOLE [Flagyl] 500 mg PO BID 7 Days #14 tab 08/18/24 Cyclobenzaprine [Flexeril] 10 mg PO TID PRN #20 tablet 09/25/24 predniSONE [Deltasone] 20 mg PO BID #8 tab 09/25/24 Allergies Allergy/AdvReac Type Severity Reaction Status Date / Time Penicillins Allergy Anaphylaxis Verified 09/25/24 12:51 /Rash strawberry Allergy Rash/Hives Verified 09/25/24 12:51 Review of Systems ROS Statement: Those systems with pertinent positive or pertinent negative responses have been documented in the HPI. ROS Other: All systems not noted in ROS Statement are negative. Constitutional: Denies: fever Eyes: Denies: eye pain ENT: Denies: ear pain Respiratory: Reports: as per HPI Cardiovascular: Denies: chest pain Endocrine: Denies: fatigue Gastrointestinal: Denies: abdominal pain Musculoskeletal: Reports: as per HPI, back pain Past Medical History Past Medical History: Hypertension, Thyroid Disorder Additional Past Medical History / Comment(s): thrombocytopenia History of Any Multi-Drug Resistant Organisms: None Reported Past Surgical History: Section Additional Past Surgical History / Comment(s): c-sect x2 Past Psychological History: No Psychological Hx Reported Smoking Status: Current every day smoker Past Alcohol Use History: None Reported Past Drug Use History: Marijuana General Exam Limitations: no limitations General appearance: alert, in no apparent distress Head exam: Present: normocephalic Eye exam: Present: normal appearance Neck exam: Present: normal inspection Respiratory exam: Present: normal lung sounds bilaterally Cardiovascular Exam: Present: regular rate, normal rhythm Expanded Peripheral pulses: 2+: Dorsalis Pedis (R), Dorsalis Pedis (L) GI/Abdominal exam: Present: soft. Absent: tenderness, pulsatile mass Extremities exam: Present: normal inspection Back exam: Present: tenderness (Lower lumbar) Neurological exam: Present: alert. Absent: motor sensory deficit Psychiatric exam: Present: normal affect, normal mood Skin exam: Present: normal color Course Vital Signs 09/25/24 12:49 Temperature 98 F Pulse Rate 96 Respiratory 20 Rate Blood Pressure 128/99 O2 Sat by Pulse 97 Oximetry Medical Decision Making - Medical Decision Making Was pt. sent in by a medical professional or institution (, PA, SLASH TRIMMER, urgent care, hospital, or correction...) When possible be specific @ -No Did you speak to anyone other than the patient for history (EMS, parent, family, police, friend...)? What history was obtained from this source @ -No Did you review nursing and triage notes (agree or disagree)? Why? @ -I reviewed and agree with nursing and triage notes Were old charts reviewed (outside hosp., previous admission, EMS record, old EKG, old radiological studies, urgent care reports/EKG's, correction records)? Report findings @ -No old charts were reviewed Differential Diagnosis (chest pain, altered mental status, abdominal pain women, abdominal pain men, vaginal bleeding, weakness, fever, dyspnea, syncope, headache, dizziness, GI bleed, back pain, seizure, CVA, palpatations, mental health, musculoskeletal)? @ -Differential Back Pain: Strain, zoster, cauda equina syndrome, epidural abscess, vertebral osteomyelitis, discitis, fracture, subluxation, disc herniation, DJD, spinal stenosis, dissection, AAA, pancreatitis, peptic ulcer disease, pyelonephritis, kidney stone, this is not meant to be an all-inclusive list. EKG interpreted by me (3pts min.). @ -As above X-rays interpreted by me (1pt min.). @ -Lumbar spine x-ray without acute abnormality. There is some degenerative changes CT interpreted by me (1pt min.). @ -None done U/S interpreted by me (1pt. min.). @ -None done What testing was considered but not performed or refused? (CT, X-rays, U/S, labs)? Why? @ -None What meds were considered but not given or refused? Why? @ -None Did you discuss the management of the patient with other professionals (professionals i.e. , PA, SLASH TRIMMER, lab, RT, psych nurse, high school social studies teacher, director of corporate real estate, teacher, contract officer, manager case management)? Give summary @ -No Was smoking cessation discussed for >3mins.? @ -No Was critical care preformed (if so, how long)? @ -No Were there social determinants of health that impacted care today? How? (Homelessness, low income, unemployed, alcoholism, drug addiction, transportation, low edu. Level, literacy, decrease access to med. care, skilled nursing, r ehab)? @ -No Was there de-escalation of care discussed even if they declined (Discuss DNR or withdrawal of care, Hospice)? DNR status @ -No What co-morbidities impacted this encounter? (DM, HTN, Smoking, COPD, CAD, Cancer, CVA, ARF, Chemo, Hep., AIDS, mental health diagnosis, sleep apnea, morbid obesity)? @ -History of low back pain Was patient admitted / discharged? Hospital course, mention meds given and route, prescriptions, significant lab abnormalities, going to OR and other pertinent info. @ -Patient presents with low back pain. No incontinence or retention. Patient had an episode where her legs gave out on her with increased pain however otherwise has not had weakness and has no weakness on exam. Patient is updated on results and plan. Undiagnosed new problem with uncertain prognosis? @ -No Drug Therapy requiring intensive monitoring for toxicity (Heparin, Nitro, Insulin, Cardizem)? @ -No Were any procedures done? @ -No Diagnosis/symptom? @ -Low back pain Acute, or Chronic, or Acute on Chronic? @ -Acute Uncomplicated (without systemic symptoms) or Complicated (systemic symptoms)? @ -Default Side effects of treatment? @ -No Exacerbation, Progression, or Severe Exacerbation? @ -No Poses a threat to life or bodily function? How? (Chest pain, [place], [place], pneumonia, PE, COPD, DKA, ARF, appy, cholecystitis, CVA, Diverticulitis, Homicidal, Suicidal, threat to staff... and all critical care pts) @ -No Disposition Clinical Impression: Low back pain Disposition: HOME SELF-CARE Condition: Stable Instructions (If sedation given, give patient instructions): Acute Low Back Pain (ED) Additional Instructions: Prescriptions have been sent to pharmacy. Start steroid tomorrow. Please do follow-up with your primary care physician in the next couple of days for recheck. Also follow-up with spine doctor, number provided. Return for increased pain, weakness, falling, loss of sensation, loss of control of bowel or bladder, worsening symptoms or any other concerns. Prescriptions: predniSONE [Deltasone] 20 mg PO BID #8 tab Cyclobenzaprine [Flexeril] 10 mg PO TID PRN #20 tablet PRN Reason: Pain Is patient prescribed a controlled substance at d/c from ED?: No Referrals: Angela Ferris MD [Primary Care Provider] - 1-2 days Time of Disposition: 14:07
[2024-09-25] MEDS: KETOROLAC 15 MG/ML 1 ML VIAL IM STA (13:16)
--- NOTE | 2024-09-25 13:49 | XR ---
EXAMINATION TYPE: XR lumbar spine 2 or 3V DATE OF EXAM: 09/25/2024 1:37 PM COMPARISON: 08/18/2024. CLINICAL INDICATION: Female, 38 years old with history of pain, pain TECHNIQUE: XR lumbar spine 2 or 3V - Frontal, lateral and coned in L5-S1 lateral views of the spine. FINDINGS: No evidence of any acute osseous pathology. No evidence of loss of vertebral body height i s seen. There is normal alignment of the lumbar vertebral bodies. Scattered disc space narrowing. Mul tilevel marginal osteophyte formation throughout the visualized spine. There is facet joint arthropat hy throughout the spine. Scattered at least mild neural foraminal stenosis. IMPRESSION: 1. No acute fracture. 2. Mild multilevel disc degeneration. [facility], , 09/25/2024 1:47 PM
[2024-09-25] MEDS: DEXAMETHASONE SOD PHOSPHATE 10 MG/ML 1 ML VIAL IM STA (14:16)
[2024-09-25 14:22] VITALS: BP 126/86; PULSE 63; RESP 16
== END 2024-09-25 14:22 | disposition home or self-care (01) ==
LOC: EC 12:45
DX: M54.50 Low back pain, unspecified (principal); F17.200 Nicotine dependence, unspecified, uncomplicated; Z88.0 Allergy status to penicillin; Z91.018 Allergy to other foods
CPT/HCPCS: 72100; 99283; 96372; J1100; J1885

== ENCOUNTER → 2024-09-30 | Outpatient (CLI) | payer OTHER ==
--- NOTE | 2024-09-30 12:49 | XR ---
EXAMINATION TYPE: XR thoracic spine 2V DATE OF EXAM: 09/30/2024 12:33 PM COMPARISON: None. CLINICAL INDICATION: Female, 38 years old with history of M54.6 Acute right sided thoracic back pain, pain TECHNIQUE: 3 view(s) obtained. FINDINGS: There are 12 thoracic type vertebral bodies. Pedicles are intact. Disc heights are preserved. Vertebr al body heights are preserved. Minimal spondylosis is present. No acute fracture or dislocation evide nt. IMPRESSION: 1. No acute osseous abnormalities thoracic spine. [facility], , 09/30/2024 12:46 PM
== END | disposition home or self-care (01) ==
LOC: RADXRMAIN 12:15
PROVIDERS: ATTEND Family Medicine
DX: M54.6 Pain in thoracic spine (principal)
CPT/HCPCS: 72070

== ENCOUNTER 2024-10-10 11:56 | Emergency (ER) | payer OTHER ==
[2024-10-10 12:00] VITALS: RESP 18; TEMP 98.2
[2024-10-10] MEDS: LIDOCAINE 4% PATCH TOPICAL ONE (12:46)
[2024-10-10] MEDS: KETOROLAC 15 MG/ML 1 ML VIAL IM STA (12:47)
[2024-10-10] MEDS: ORPHENADRINE 30 MG/ML 2 ML VIAL IM STA (12:48)
[2024-10-10] MEDS ORDERED: ACET/COD 300 MG/30 MG STARTER PACK 6 TAB BTL PO STA (13:22)
--- NOTE | 2024-10-10 13:23 | ED ---
General Adult HPI - General Chief complaint: Back Pain/Injury Stated complaint: Back Pain Time Seen by Provider: 10/10/24 12:02 Source: patient, RN notes reviewed Mode of arrival: ambulatory Limitations: no limitations - History of Present Illness Initial comments: 38-year-old female presents to the emergency department for evaluation of back pain. Patient notes that this has been an ongoing issue for the past 3 weeks. She states that she has had difficulty getting comfortable due to the pain. She notes that the pain is worse when she walks and moves around. She does note that the pain radiates down her right leg. She denies any numbness or tingling. Denies any loss of bowel or bladder function, urinary retention, saddle anesthesia. She has had outpatient x-rays performed by her primary care provider. She is following closely with her primary care provider for this. - Related Data Home Medications Medication Instructions Recorded Confirmed Escitalopram [Lexapro] 20 mg PO DAILY 08/09/24 08/09/24 Levothyroxine Sodium [Synthroid] 88 mcg PO DAILY 08/09/24 08/09/24 Semaglutide [Wegovy] 1 mg SQ FR 08/09/24 08/09/24 amLODIPine [Norvasc] 5 mg PO DAILY 08/09/24 08/09/24 hydroCHLOROthiazide 12.5 mg PO DAILY 08/09/24 08/09/24 Previous Rx's Medication Instructions Recorded Ciprofloxacin HCl [Cipro] 500 mg PO Q12HR 7 Days #14 tab 08/18/24 Ondansetron Odt [Zofran Odt] 4 mg PO Q8HR PRN #20 tab 08/18/24 metroNIDAZOLE [Flagyl] 500 mg PO BID 7 Days #14 tab 08/18/24 Cyclobenzaprine [Flexeril] 10 mg PO TID PRN #20 tablet 09/25/24 predniSONE [Deltasone] 20 mg PO BID #8 tab 09/25/24 Cyclobenzaprine [Flexeril] 10 mg PO TID PRN #15 tab 10/10/24 Lidocaine 5% Patch [Lidoderm 5% 1 patch TOPICAL DAILY #30 patch 10/10/24 Patch] Allergies Allergy/AdvReac Type Severity Reaction Status Date / Time Penicillins Allergy Anaphylaxis Verified 10/10/24 12:00 /Rash strawberry Allergy Rash/Hives Verified 10/10/24 12:00 Review of Systems ROS Statement: Those systems with pertinent positive or pertinent negative responses have been documented in the HPI. ROS Other: All systems not noted in ROS Statement are negative. Past Medical History Past Medical History: Hypertension, Thyroid Disorder Additional Past Medical History / Comment(s): thrombocytopenia History of Any Multi-Drug Resistant Organisms: None Reported Past Surgical History: Section Additional Past Surgical History / Comment(s): c-sect x2 Past Psychological History: No Psychological Hx Reported Smoking Status: Current every day smoker Past Alcohol Use History: None Reported Past Drug Use History: Marijuana General Exam Limitations: no limitations General appearance: alert, in no apparent distress Head exam: Present: atraumatic, normocephalic, normal inspection Eye exam: Present: normal appearance, PERRL, EOMI. Absent: scleral icterus, conjunctival injection, periorbital swelling Respiratory exam: Present: normal lung sounds bilaterally. Absent: respiratory distress, wheezes, rales, rhonchi, stridor Cardiovascular Exam: Present: regular rate, normal rhythm, normal heart sounds. Absent: systolic murmur, diastolic murmur, rubs, gallop, clicks GI/Abdominal exam: Present: soft, normal bowel sounds. Absent: distended, tenderness, guarding, rebound, rigid Extremities exam: Present: normal inspection, full ROM, normal capillary refill. Absent: tenderness, pedal edema, joint swelling, calf tenderness Back exam: Present: tenderness. Absent: full ROM (Decreased into motion due to pain), CVA tenderness (R), CVA tenderness (L) Neurological exam: Present: alert, oriented X3 Psychiatric exam: Present: normal affect, normal mood Skin exam: Present: warm, dry, intact, normal color. Absent: rash Course Vital Signs 10/10/24 10/10/24 11:57 13:26 Temperature 98.2 F Pulse Rate 91 71 Respiratory 18 18 Rate Blood Pressure 174/82 109/69 O2 Sat by Pulse 97 98 Oximetry Medical Decision Making - Medical Decision Making Was pt. sent in by a medical professional or institution (, PA, SHIP OFFICER, urgent care, hospital, or group home...) When possible be specific @ -No Did you speak to anyone other than the patient for history (EMS, parent, family, police, friend...)? What history was obtained from this source @ -No Did you review nursing and triage notes (agree or disagree)? Why? @ -I reviewed and agree with nursing and triage notes Were old charts reviewed (outside hosp., previous admission, EMS record, old EKG, old radiological studies, urgent care reports/EKG's, group home records)? Report findings @ -I reviewed the reports from the lumbar spine and thoracic spine x-rays Differential Diagnosis (chest pain, altered mental status, abdominal pain women, abdominal pain men, vaginal bleeding, weakness, fever, dyspnea, syncope, headache, dizziness, GI bleed, back pain, seizure, CVA, palpatations, mental health, musculoskeletal)? @ -Differential Back Pain: Strain, zoster, cauda equina syndrome, epidural abscess, vertebral osteomyelitis, discitis, fracture, subluxation, disc herniation, DJD, spinal stenosis, dissection, AAA, pancreatitis, peptic ulcer disease, pyelonephritis, kidney stone, this is not meant to be an all-inclusive list. EKG interpreted by me (3pts min.). @ -None X-rays interpreted by me (1pt min.). @ -None done CT interpreted by me (1pt min.). @ -None done U/S interpreted by me (1pt. min.). @ -None done What testing was considered but not performed or refused? (CT, X-rays, U/S, labs)? Why? @ -None What meds were considered but not given or refused? Why? @ -None Did you discuss the management of the patient with other professionals (professionals i.e. , PA, SHIP OFFICER, lab, RT, psych nurse, social service worker, clean room operator, teacher, complaint evaluation officer, watch caser)? Give summary @ -No Was smoking cessation discussed for >3mins.? @ -No Was critical care preformed (if so, how long)? @ -No Were there social determinants of health that impacted care today? How? (Homelessness, low income, unemployed, alcoholism, drug addiction, transportation, low edu. Level, literacy, decrease access to med. care, alf, rehab)? @ -No Was there de-escalation of care discussed even if they declined (Discuss DNR or withdrawal of care, Hospice)? DNR status @ -No What co-morbidities impacted this encounter? (DM, HTN, Smoking, COPD, CAD, Cancer, CVA, ARF, Chemo, Hep., AIDS, mental health diagnosis, sleep apnea, morbid obesity)? @ -None Was patient admitted / discharged? Hospital course, mention meds given and route, prescriptions, significant lab abnormalities, going to OR and other pertinent info. @ -Discharge. Patient presented emergency department for back pain. I reviewed prior x-rays revealing no acute process. Patient was provided medic ation for pain control in the emergency department. She is not having any red flag symptoms at this time. She will be discharged home. She is understanding agreeable discharge plan. Patient stable at time of discharge. Case discussed with Dr. Sánchez Undiagnosed new problem with uncertain prognosis? @ -No Drug Therapy requiring intensive monitoring for toxicity (Heparin, Nitro, Insulin, Cardizem)? @ -No Were any procedures done? @ -No Diagnosis/symptom? @ -Mechanical back pain Acute, or Chronic, or Acute on Chronic? @ -Acute Uncomplicated (without systemic symptoms) or Complicated (systemic symptoms)? @ -Uncomplicated Side effects of treatment? @ -No Exacerbation, Progression, or Severe Exacerbation? @ -No Poses a threat to life or bodily function? How? (Chest pain, USA, ID, pneumonia, PE, COPD, DKA, ARF, appy, cholecystitis, CVA, Diverticulitis, Homicidal, Suicidal, threat to staff... and all critical care pts) @ -No Disposition Clinical Impression: Low back pain Disposition: HOME SELF-CARE Condition: Stable Instructions (If sedation given, give patient instructions): Acute Low Back Pain (ED) Additional Instructions: Please follow up with your primary care provider on Friday. Return to the emergency department for new or worsening symptoms. Prescriptions: Cyclobenzaprine [Flexeril] 10 mg PO TID PRN #15 tab PRN Reason: Muscle Spasm Lidocaine 5% Patch [Lidoderm 5% Patch] 1 patch TOPICAL DAILY #30 patch Is patient prescribed a controlled substance at d/c from ED?: No Referrals: Angela Ferris MD [Primary Care Provider] - 1-2 days
[2024-10-10 13:34] VITALS: BP 109/69; PULSE 71
== END 2024-10-10 13:26 | disposition home or self-care (01) ==
LOC: EC 11:56
DX: M54.50 Low back pain, unspecified (principal); F17.200 Nicotine dependence, unspecified, uncomplicated; Z88.0 Allergy status to penicillin; Z91.018 Allergy to other foods
CPT/HCPCS: 99283; 96372 ×2; J2360; J1885